=== PATIENT | female | born 1940 | race Hispanic/Latino ===

== ENCOUNTER 2016-11-17 20:23 | Emergency (ER) | payer MEDICARE, MEDICAID ==
[~2016-11-17] VITALS: Ht 154.9 cm; Wt 81.0 kg
[~2016-11-17 20:23] MED LIST: NITR100 PO; RABE20TA PO
[2016-11-17 21:03] VITALS: BP 116/71; PULSE 76; RESP 18; O2SAT 98
--- NOTE | 2016-11-17 22:21 | ED.REPORT ---
HPI-Abd Pain F 40 and Over Date of Service Nov 17, 2016 ED Provider: Reginaldo Adrian DO Pt is a 76 y.o. Bengali-speaking female wheelchair bound secondary to a CVA with a hx of HTN and HLD who presents to the ED accompanied by her daughter and she complains of right flank pain. Symptoms started this morning and seemed to wax and wane. She is more comfortable now. She does have a history of urinary tract infections and she had a urinary tract infection in September. Nursing Notes Stated Complaint: R SIDE ABD PAIN Chief Complaint: Female Abdominal Pain Nursing Notes Reviewed: Yes Allergies: Coded Allergies: No Known Allergies (Verified Allergy, Mild, 11/11/09) Scheduled Rabeprazole-Expunged Drug, Do Not Renew! (Rabeprazole-Expunged Drug, Do Not Renew!) 20 Mg Tablet.dr 20 MG PO BID Scheduled PRN Nitrofurantoin Monohyd/M-Cryst (MacroBid) 100 Mg Capsule 100 MG PO BID PRN PRN uti General Time Seen by MD: 22:21 Chief Complaint Abdominal pain Hx Obtained From: Daughter Arrived By: Wheelchair Sudden in Onset?: Yes Onset Occurred: 9 - 12 hours ago Symptom Duration: Since onset Location: : Flank right: RLQ Quality: Painful Severity: Current: Severe Past Medical History Past Medical History UTIs CVA Reports: GERD, Hyperlipidemia, Hypertension Past Surgical History none reported Smoking History Never Smoker Social History Alcohol Use: Denies alcohol use Drug Use: Denies drug use Other Social History: Good social support, Local resident Ambulatory Status Wheelchair Review of Systems Constitutional: Denies: Fever GI: Reports: Abdominal pain, Denies: Diarrhea, Vomiting Female: Reports: Flank pain, Denies: Dysuria Complete sys rev & neg: except as marked. Physical Exam Vital Signs Vital Signs (First) Date Time Temp Pulse Resp B/P Pulse Ox O2 Delivery O2 Flow Rate FiO2 11/17/16 21:03 36.8 76 18 116/71 98 Room Air Initial VS: Reviewed Head / Eyes: Atraumatic, Normocephalic Skin: Warm, Dry, No cyanosis Neurologic: Alert, Oriented, Nonfocal Psychiatric: Mood/affect normal, Behavior normal General/Constitutional: Awake, Well appearing, Well developed, Well hydrated, Well nourished, Not toxic appearing Respiratory / Chest: Atraumatic, Breath sounds NL, No respiratory distress Cardiovascular: Heart rate NL, Regular rhythm, Peripheral circulation NL Abdomen: Atraumatic, Soft, No guarding, No rebound, No distention Tenderness/Guarding/Rebound: Positive: Tender RLQ... Back: Atraumatic, Inspection NL Right CVA tenderness Interpretation & Diagnostics Lab Results Interpretation Result Diagram: 11/17/16221711/17/16 2218 Test 11/17/16 22:18 11/18/16 01:00 White Blood Count 8.4th/mm3 (3.8-10.1) Red Blood Count 4.07mil/mm3 (3.90-5.20) Hemoglobin 12.8g/dL (12.0-15.6) Hematocrit 39.2% (35.0-46.0) Mean Corpuscular Volume 96.3fL (81-100) Mean Corpuscular Hemoglobin 31.4pg (27.0-35.0) Mean Corpuscular Hemoglobin Concent 32.7% (32.0-37.0) Red Cell Distribution Width 12.5% (12.3-15.4) Platelet Count 188bil/L (150-400) Neutrophils (%) (Auto) 53.2% (40-74) Lymphocytes (%) (Auto) 32.1% (14-46) Monocytes (%) (Auto) 8.5% (4-12) Eosinophils (%) (Auto) 5.1% (0-5) Basophils (%) (Auto) 0.7% (0-3) Sodium Level 139mEq/L (134-144) Potassium Level 3.7mEq/L (3.5-5.2) Chloride Level 102mEq/L (97-108) Carbon Dioxide Level 24mmol/L (18-29) Blood Urea Nitrogen 10mg/dL (8-27) Creatinine 0.53mg/dL (0.57-1.00) Estimat Glomerular Filtration Rate 160mL/min (>59) Glucose Level 166mg/dL (60-99) Calcium Level 9.5mg/dL (8.5-10.1) Magnesium Level 2.0mg/dL (1.6-2.6) Total Bilirubin 0.3mg/dL (0.0-1.2) Aspartate Amino Transf (AST/SGOT) 18U/L (0-50) Alanine Aminotransferase (ALT/SGPT) 11U/L (0-32) Alkaline Phosphatase 149U/L (25-165) Total Protein 7.6g/dL (6.4-8.4) Albumin 3.8g/dL (3.4-5.0) Lipase 36U/L (13-60) Hold Sky Top Tube Received (Received) Urine Color Straw (YELLOW) Urine Appearance Slightly cloudy Urine pH 6.0 (5.0-8.0) Urine Specific [place] 1.005 (1.003-1.035) Urine Protein Negativemg/dL (NEG,TRACE) Urine Glucose (UA) Negativemg/dL (NEGATIVE) Urine Ketones Negativemg/dL (NEGATIVE) Urine Occult Blood Moderate (NEGATIVE) Urine Nitrite Positive (NEGATIVE) Urine Bilirubin Negative (NEGATIVE) Urine Urobilinogen Normalmg/dL (NORMAL) Urine Leukocyte Esterase Moderate (NEGATIVE) Urine RBC 3-10/hpf (0-2) Urine WBC Packed/hpf (0-5) Urine Epithelial Cells Moderate/hpf (NONE-MOD) Urine Crystals None seen (NONE SEEN) Urine Bacteria Many/hpf (NONE-FEW) Urine Hyaline Casts None/lpf (NONE) Urine Granular Casts None seen (NONE SEEN) Urine Waxy Casts None seen (NONE SEEN) Urine Red Blood Cell Casts None seen (NONE SEEN) Urine White Blood Cell Casts None seen (NONE SEEN) Urine Mucus None seen (None Seen) Urine Trichomonas None seen (NONE SEEN) Urine Yeast None (NONE SEEN) Urine Culture Reflexed Indicated Urinalysis Interpretation Positive leukocyte est, Positive nitrite CT Abd / Pelvis Interpretation CONCLUSION: No psecific acute abnormality. Parenchymal scarring in the left kidney. Correlate with history. Urinary tract infection should be excluded clinically. Diverticulosis without evidence of diverticulitis. Atherosclerotic vascular disease. Re-Eval/Medical Decision Med Decision/Clinical Course This is a very pleasant well-appearing 76-year-old female who has biochemical evidence of a urinary tract infection. Her CT scan shows scarring of the left kidney however there is no acute abnormalities and no signs of obstructive uropathy. She received 2 g of IV ceftriaxone. White blood cell count metabolic panel were normal. She was medicated looked and felt well. She did not meet sepsis criteria. She was never febrile or tachycardic. She is very comfortable at discharge. Her last urinary tract infection was positive for Escherichia coli. The Escherichia coli was sensitive to Bactrim and resistant to Cipro amongst other things. It was also sensitive to ceftriaxone. She has been medicated for the first twenty-four hours of IV Rocephin. I will place her in seven days of Bactrim. She is to call her provider tomorrow for recheck and follow up with urine culture results. She is to return she has any problems or develops a fever. Source of Hx: Old records Re-Evaluation/Progress : Time of Eval: 01:19 Re-Evaluation/Progress Note: Pt rechecked. Discussed lab and imaging results and plan for discharge, pt understands and agrees with plan. Counseled Regarding: Diagnosis, Lab results, Need for follow-up, When/why to return to ED Discharge & Departure Primary Impression: UTI (urinary tract infection) Urinary tract infection type: acute cystitis Hematuria presence: without hematuria Qualified Code: N30.00 - Acute cystitis without hematuria Disposition: Home Discharge Condition All VS Reviewed: Yes Condition: Stable Patient Instructions: Urinary Tract Infection in Women (ED) Additional Instructions: Take Bactrim twice daily for 7 days. Take Tylenol as directed for pain. Follow- up with your primary care provider next week to discuss you urine culture. Call tomorrow to schedule this appointment and tell them you were seen in the ED. Return if you develop a fever, vomiting, or any worsening symptoms. The CT scan shows scarring of her left kidney. Have her follow this up with her primary care physician as well as the referral urologist. Do not hesitate to return if she has any problems or if the pain returns or if she seems to be getting sicker in any way. Referrals: Beto Abrams MD (PCP) Carmita Macias MD Attestation Portions of this note were transcribed by Felix Brush. I, Dr. Adrian personally performed the history, physical exam and medical decision-making; I reviewed and confirmed the accuracy of the information in the transcribed note. Signed by : Alexsandra Escobar, 11/18/16 and 0146. copies to: Beto Abrams MD, Todd P DO Nov 17, 2016 22:21 FELIX BRUSH Nov 17, 2016 23:01
[2016-11-17 22:26] LABS: BASOPHILS % (AUTO) 0.7 % (0-3); EOSINOPHILS % (AUTO) 5.1 % (0-5); MONOCYTES % (AUTO) 8.5 % (4-12); Mean Corpuscular Hemoglobin 31.4 pg (27.0-35.0); Mean Corpuscular Volume 96.3 fL (81-100); NEUTROPHILS % (AUTO) 53.2 % (40-74); Platelet Count 188 bil/L (150-400)
[2016-11-17] MEDS ORDERED: fentaNYL-PF 50 mCg/mL 2 mL Inj IVPUSH ONE (23:00)
[2016-11-17] MEDS ORDERED: 0.9% Sodium Chloride 1,000 ML IV ONE (23:00)
[2016-11-17] MEDS ORDERED: Ondansetron 2 mg/mL 2 mL Inj IVPUSH ONE (23:00)
[2016-11-18 01:14] LABS: APPEARANCE,URINE SLIGHTLY CLOUDY (CLEAR,HAZY); COLOR,URINE STRAW (YELLOW)
[2016-11-18 01:15] LABS: OCCULT BLOOD,URINE MODERATE (NEGATIVE); UROBILINOGEN,URINE NORMAL (NORMAL)
[2016-11-18] MEDS ORDERED: cefTRIAXone Inj 2 GM in IV Premix 1 EACH IV ONE (01:15)
[2016-11-18] MEDS ORDERED: CeFAZolin Inj 2 GM in IV Premix 1 EACH IV ONE (01:17)
[2016-11-18] MEDS ORDERED: cefTRIAXone Inj 2,000 MG in IV Premix 1 EACH IV ONE (01:35)
[2016-11-18] MEDS ORDERED: Ketorolac 15 mg/mL Inj IVPUSH ONE (02:00)
[2016-11-18 02:51] VITALS: BP 150/87; PULSE 95; RESP 23; O2SAT 99
--- NOTE | 2016-11-18 08:21 | DRSVH ---
PROCEDURE: CT ABDOMEN AND PELVIS WITH CONTRAST ([id number]) INDICATIONS: RLQ and right flank pain TECHNIQUE: After the administration of intravenous contrast, 5 mm thick sections acquired from the diaphragm to the symphysis. 5 mm coronal and sagittal reformats were acquired. For radiation dose reduction, the following was used: automated exposure control, adjustment of mA and/or kV according to patient siz e. COMPARISON: [facility], CR, XR CHEST 2VW, 11/14/2015, 13:15. FINDINGS: Image quality: Excellent. ABDOMEN: Lung bases: Bilateral diffuse groundglass infiltrates. A 4 mm nodule is noted in the left lower lobe (series 3 image 2). No pleural effusions. Heart size is normal. Mitral annular calcification. Mild sclerotic ossification. Small hiatal hernia. Solid organs: Liver and spleen are normal in size and enhancement. Gallbladder is surgically absent . Biliary system is non dilated. Pancreas enhances normally. No adrenal nodules. Kidneys demonstr ate normal size and enhancement, without hydronephrosis. There is a cortical scar in the superior po le of the left kidney. Peritoneum and bowel: Appendix is normal. No inflammatory stranding in the right lower quadrant. No free fluid or fluid collection. No free air. Bowel loops demonstrate normal wall thickness and calib er. There are scattered colonic diverticula. No evidence for active diverticulitis. Nodes and vessels: No retroperitoneal or mesenteric adenopathy by size criteria. Aorta and inferior vena cava are normal in size. Miscellaneous: No ventral hernias. PELVIS: Genitourinary: Bladder wall may be mildly thickened concentrically. Miscellaneous: No inguinal hernias or adenopathy. Bones: No suspicious bony lesions. No vertebral body compression fractures. IMPRESSION: 1. Normal appendix. No CT findings to explain right lower quadrant and flank pain. 2. Left renal cortical scar. 3. ? Mild concentric thickening of urinary bladder. 4. Diverticulosis. No active diverticulitis. 5. Bilateral diffuse ground glass infiltrates in lung bases. This finding may be secondary to bilater al pneumonia or pneumonitis. 6. A 4 mm nodule in the left lower lobe. Recommend imaging followup (see below). Fleischner Society criteria for SOLID lung nodule followup. Nodule size (mm)Low-risk patientHigh-risk [id number] follow-up neededFollow-up at 12 mo; if no kim e, no further follow-up>[id number] CT at 12 mo; if no change, no further follow-up needed.Initial f ollow-up CT at 6-12 mo, then 18-24 mo if no change. >6-8Initial follow-up CT at 6-12 mo, then 18-24 mo if no change. Initial follow-up CT at 3-6 mo, then 9-12 mo and 24 mo if no change. >8Follow-up CT at 3, 9, 24 mo. Or PET and/or biopsy.Same as for low-risk pts. Fleischner Society criteria for SUB-SOLID lung nodule followup. Solitary pure ground-glass nodules5 mm or lessNo followup needed. >5 mm3 mo follow-up CT to confirm persistence. Then annual CT for 3 years. Part-solid nodules3 mo follow-up CT to confirm persistence . If persistent with solid component <5 mm, annual CT for at least 3 years. If solid component is 5 mm or more, biopsy or surgical resection. Consider PET-CT for lesions > 10 mm. Multiple sub-solid nodulesPure ground glass nodules [address] at 2 and 4 years. Pure ground glass nodules >5 mm without dominant lesion. [address] to confirm persistence, then annual followup CT for at least 3 years. Dominant nodule(s) with part-solid or solid component. [address] to confirm persistence. If persistent, consider biopsy or surgical resection, bryan if lesions have >5 m m solid component. Dictated by: Colleen Washington M.D. on 11/18/2016 at 8:09 Approved by: Colleen Washington M.D. on 11/18/2016 at 8:19
[2017-03-19] MEDS ORDERED: WARF2.5T PO ×2 (08:32)
[2017-03-19] MEDS ORDERED: SULF1TAB7 PO (09:09)
== END 2016-11-18 02:53 | disposition home or self-care (01) ==
LOC: SED 20:23
DX: N30.00 Acute cystitis without hematuria (principal); E78.5 Hyperlipidemia, unspecified; I10 Essential (primary) hypertension; K21.9 Gastro-esophageal reflux disease without esophagitis; B96.20 Unspecified Escherichia coli [E. coli] as the cause of diseases classified elsewhere; Z86.73 Personal history of transient ischemic attack (TIA), and cerebral infarction without residual deficits; Z87.440 Personal history of urinary (tract) infections; Z99.3 Dependence on wheelchair
CPT/HCPCS: 36415; 74177; 80053; 81000; 83690; 83735; 85025; 87077; 87086; 87088; 87186; 96361; 96365; 96375; 99285; J0696; J1885; J2405; J3010; J7030; Q9967

== ENCOUNTER 2016-11-24 17:08 | Inpatient (IN) | payer MEDICARE, MEDICAID ==
[~2016-11-24] VITALS: Ht 152.4 cm; Wt 74.0 kg
[2016-11-24 17:11] VITALS: BP 159/69; PULSE 67; RESP 20; O2SAT 97
--- NOTE | 2016-11-24 17:33 | ED.REPORT ---
HPI-Extremity Problem Lower Date of Service Nov 24, 2016 ED Provider: Feroz Martini MD 76 year old Hong Konger-speaking female with a history of CVA in 2016 with residual left side deficits presents to the ER accompanied by her granddaughter referred from urgent care due to concern for DVT in the left lower extremity. Patient complains of pain and swelling in the affected limb that is localized in the knee and foot, onset a week ago. She denies recent trauma or injury, fever, chills, dysuria, and history of similar. Last week she was seen here in the ER and started on a course of antibiotic to treat a bladder infection. Granddaughter also states that the patient has been complaining of a painful, itching spot on her back. Nursing Notes Stated Complaint: L LEG Chief Complaint: Extremity Trauma Nursing Notes Reviewed: Yes (We Cut The Glass not reconciled) Allergies: Coded Allergies: No Known Allergies (Verified Allergy, Mild, 11/11/09) Scheduled Aspirin (Aspirin) 81 Mg Tablet 81 MG PO DAILY Citalopram (Citalopram) 10 Mg Tablet 10 MG PO DAILY Cranberry Fruit (Cranberry) 500 Mg Tab.chew 500 MG PO DAILY Sulfamethoxazole/Trimeth 800-160 mg (Bactrim DS 800-160 mg) 1 Each Tablet 1 TABLET PO BID Scheduled PRN Acetaminophen (Tylenol Arthritis) 650 Mg Tablet.er 650 MG PO TID PRN PRN For Pain Baclofen (Baclofen) 10 Mg Tablet 5 MG PO TID PRN PRN For Spasm Ibuprofen (Ibuprofen) 200 Mg Capsule 200 MG PO QID PRN PRN For Pain General Time Seen by MD: 17:26 Chief Complaint Leg injury left Hx Obtained From: Patient Arrived By: Walk-in Onset Occurred: 1 week ago Symptom Duration: Since onset Location: : Foot left: Knee left: Leg left Quality: Painful Severity: Current: Mild Severity: Maximum: Moderate Associated with: Denies: Fever Exacerbated by: Range of motion, Movement Pertinent Negative: Relieved by nothing Past Medical History Past Medical History UTIs CVA (treated w/tPA 09/2016 and transfer to Stroke) Reports: GERD, Hyperlipidemia, Hypertension Past Surgical History none reported Smoking History Never Smoker Social History Alcohol Use: Denies alcohol use Drug Use: Denies drug use Other Social History: Good social support, Local resident Ambulatory Status Wheelchair Review of Systems Constitutional: Denies: Chills, Fever Musculoskeletal: Reports: Extremity pain (Left Leg/Foot), Extremity swelling ( Left Leg), Joint pain (Left Knee), Denies: Back pain, Lumbar pain, Neck pain, Thoracic pain Complete sys rev & neg: except as marked. Physical Exam Physical Exam Notes: Initial Vital Signs Vital Signs (First) Date Time Temp Pulse Resp B/P Pulse Ox O2 Delivery O2 Flow Rate FiO2 11/24/16 17:11 36.5 67 20 159/69 97 Room Air Initial VS: Reviewed, Vital signs normal General/Constitutional: Well-developed, Well-nourished Head / Eyes: Atraumatic, Normocephalic Neck: Supple, Non-tender, Full range of motion Upper Extremities: Vascular intact, Neuro intact, No swelling, No tenderness Neurologic: Alert, Oriented, Nonfocal Lower Extremity / Pelvis / MS: No deformity, Neurologic intact, Vascular intact LEFT LEG: Contracture from prior CVA. Swollen 1+ with decreased ROM secondary to contracture. Good capillary refill. Ankle / Foot: Full range of motion, No deformity, Neurologic intact Pulses are symmetric. Skin: Warm, Dry, Intact Rash / Lesion Notes: 1cm pruritic rasied lump on the right flank. No sign of cellulitis or infection. Rash / Lesion Location: Positive: Back Interpretation & Diagnostics Interpretation & Diagnostics: Urine culture from recent ED visit positive for Escherichia coli, sensitive to Bactrim which the patient is taking PROCEDURE: US VEINOUS LEG DUPLEX UNILATERAL, LEFT INDICATIONS: swelling, pain ro DVT TECHNIQUE: Real-time imaging, as well as color and pulse Doppler interrogation, were performed of the lower extremity deep veins from the inguinal ligament to the popliteal fossa. COMPARISON: None. FINDINGS: Deep venous thrombosis is present within the proximal common femoral vein extending to the level of the popliteal vein. There is also occlusive thrombus within the proximal greater saphenous vein to the level of the knee. There is diffuse lower leg edema IMPRESSION: Extensive left lower extremity deep venous thrombosis as detailed above. Dictated by: Stas Leone M.D. on 11/24/2016 at 20:54 Approved by: Stas Leone M.D. on 11/24/2016 at 20:55 Lab Results Interpretation Result Diagram: 11/24/16210711/24/162107 Test 11/24/16 21:08 White Blood Count 7.3th/mm3 (3.8-10.1) Red Blood Count 3.83mil/mm3 (3.90-5.20) Hemoglobin 12.0g/dL (12.0-15.6) Hematocrit 37.2% (35.0-46.0) Mean Corpuscular Volume 97.1fL (81-100) Mean Corpuscular Hemoglobin 31.3pg (27.0-35.0) Mean Corpuscular Hemoglobin Concent 32.3% (32.0-37.0) Red Cell Distribution Width 12.6% (12.3-15.4) Platelet Count 230bil/L (150-400) Neutrophils (%) (Auto) 39.4% (40-74) Lymphocytes (%) (Auto) 42.6% (14-46) Monocytes (%) (Auto) 8.4% (4-12) Eosinophils (%) (Auto) 8.1% (0-5) Basophils (%) (Auto) 1.1% (0-3) Prothrombin Time 9.7sec (8.1-12.5) Prothromb Time International Ratio 0.91ratio Activated Partial Thromboplast Time 23.6sec (22.8-33.0) Sodium Level 136mEq/L (134-144) Potassium Level 4.6mEq/L (3.5-5.2) Chloride Level 100mEq/L (97-108) Carbon Dioxide Level 23mmol/L (18-29) Blood Urea Nitrogen 15mg/dL (8-27) Creatinine 0.79mg/dL (0.57-1.00) Estimat Glomerular Filtration Rate 101mL/min (>59) Glucose Level 104mg/dL (60-99) Calcium Level 9.4mg/dL (8.5-10.1) Total Bilirubin 0.2mg/dL (0.0-1.2) Aspartate Amino Transf (AST/SGOT) 26U/L (0-50) Alanine Aminotransferase (ALT/SGPT) 15U/L (0-32) Alkaline Phosphatase 108U/L (25-165) Total Protein 7.4g/dL (6.4-8.4) Albumin 3.6g/dL (3.4-5.0) Lab Results Interpretation: CBC normal CMP normal UA neg ECG Interpretation ECG Interpretation: Sinus rhythm, rate 63 LVH Unchanged from 11/20/2015 Time: 21:25 Interpreted by: ED physician Re-Eval/Medical Decision Med Decision/Clinical Course This is a 76-year-old female who has a previous stroke (that was treated w/tPA) who is on ASA and who has residual severe left-sided deficit and has not ambulatory. He sent from urgent care she has developed some pain in her left foot yesterday, and then today was noted to have left leg swelling and pain and discomfort. She denies chest pain, palpitations, shortness of breath. She has no previous history of DVT or PE. On exam, she has a marked swelling of the left leg, highly concerning for possible DVT. She does have decreased range of motion contracture of the leg, but is uncomfortable. Not want any pain medicine. She is recently seen for UTI , it was culture positive for Escherichia coli, sensitive to Bactrim, she reports she has no urinary symptoms, and repeat urinalysis is negative. Ultrasound is positive for DVT. This appears to be a clinically sizable DVT, I discussed candidacy and requirements for the possibility of catheter directed thrombolytic lysis. This the DVT is a bullet off the catheter directed therapy is reasonable option according to the radiologist, the question was the patient and family's desire for risk benefit ratios. The patient has not ambulatory, there is likely less benefit in this setting, but the patient still has sensation and it *may* help with discomfort personal. However catheter directed treatment would raise the possibility of a complication from the procedure, or from the thrombolytic medicines as well. The interventional radiologist as indicated that the patient does want, she will be willing to perform catheter directed therapy tomorrow morning. I explained that standard therapy is anticoagulation with Lovenox and subsequent warfarin. Family were attentive, had appropriate questions, and had a family conference to discuss their preferences. In the end they decided on pursuing catheter directed therapy, understanding the slight increased risk of complications such as a complication from the procedure, or the anticoagulant used. Given this, the patient's being treated with heparin, and admitted to the hospitalist service. Source of Hx: Old records Re-Evaluation/Progress : Time of Eval: 20:07 Re-Evaluation/Progress Note: Discussed ultrasound results, radiology consults, and reviewed treatment options with the patient and graddaughter. Consultation #1: Referral / Consult Name: Stas Leone MD Consulted With: On-call physician (Radiology) Call Returned at: 19:10 Note: Spoke to radiology regarding patient's candidacy for interventional radiology. Consultation #2: Referral / Consult Name: Gertrudis Baxter MD Consulted With: On-call physician (Radiology) Call Returned at: 19:35 Note: Discussed patient case with Dr. Baxter, Radiology. It is unclear if the patient would benefit from interventional radiology. Consultation #3: Referral / Consult Name: Marietta Rick DO Consulted With: Hospitalist Call Returned at: 22:13 Child Psychology Teacher: Agrees with eval, Agrees with plan, Accepts admit Differential Diagnosis: Positive: Venous thromboembolism, Negative: Abrasion, Abscess, Achilles tendon rupture, Knee disloc ant, Knee disloc post, Lesser trochant fracture Counseled Regarding: Diagnosis, Lab results, Need for admission Discharge & Departure Impression: Primary Impression: DVT (deep venous thrombosis) DVT location: lower extremity Affected thrombotic vein of extremity: unspecified lower extremity proximal vein Laterality: left Chronicity: acute Qualified Code: I82.4Y2 - Acute embolism and thrombosis of unspecified deep veins of left proximal lower extremity Disposition: ADMITTED TO HOSPITAL Discharge Condition All VS Reviewed: Yes Condition: Stable Referrals: Beto Abrams MD (PCP) Alexsandra Attestation Portions of this note were transcribed by Donato Colón. I, Dr. Martini, personally performed the history, physical exam and medical decision-making; I reviewed and confirmed the accuracy of the information in the transcribed note. Signed by: Alexsandra Bazzi, 11/24/2016 and 22:14 copies to: Beto Abrams MD, Matthew F MD Nov 24, 2016 17:33 DONATO COLÓN Nov 24, 2016 17:43
[2016-11-24] MEDS ORDERED: BACL10TA PO (17:52)
[2016-11-24] MEDS ORDERED: SULF1TAB35 PO (18:02)
[2016-11-24] MEDS ORDERED: ACET-2766 PO (18:05)
[2016-11-24] MEDS ORDERED: CITA10TA9 PO (18:05)
[2016-11-24] MEDS ORDERED: ASPI-973 PO (18:07)
[2016-11-24] MEDS ORDERED: IBUP200C PO (18:08)
[2016-11-24] MEDS ORDERED: CRAN500T PO (18:08)
[2016-11-24 19:35] VITALS: BP 168/75; PULSE 66; RESP 16; O2SAT 97
[2016-11-24] MEDS ORDERED: Heparin 25K Unit/500mL 0.45 NS 25,000 UNIT in IV Premix 1 EACH IV ONE (20:55)
[2016-11-24] MEDS ORDERED: Heparin 5,000 Unit/mL Inj IVPUSH ONE (20:55)
--- NOTE | 2016-11-24 20:56 | DRSVH ---
PROCEDURE: US VEINOUS LEG DUPLEX UNILATERAL, LEFT INDICATIONS: swelling, pain ro DVT TECHNIQUE: Real-time imaging, as well as color and pulse Doppler interrogation, were performed of the lower extr emity deep veins from the inguinal ligament to the popliteal fossa. COMPARISON: None. FINDINGS: Deep venous thrombosis is present within the proximal common femoral vein extending to the level of the popliteal vein. There is also occlusive thrombus within the proximal greater saphenous v ein to the level of the knee. There is diffuse lower leg edema IMPRESSION: Extensive left lower extremity deep venous thrombosis as detailed above. Dictated by: Stas Leone M.D. on 11/24/2016 at 20:54 Approved by: Stas Leone M.D. on 11/24/2016 at 20:55
[2016-11-24 21:27] LABS: BASOPHILS % (AUTO) 1.1 % (0-3); EOSINOPHILS % (AUTO) 8.1 % (0-5); MONOCYTES % (AUTO) 8.4 % (4-12); Mean Corpuscular Hemoglobin 31.3 pg (27.0-35.0); Mean Corpuscular Volume 97.1 fL (81-100); NEUTROPHILS % (AUTO) 39.4 % (40-74); Platelet Count 230 bil/L (150-400)
[2016-11-24 22:04] VITALS: BP 164/75; PULSE 66; RESP 16; O2SAT 97
[2016-11-24 22:07] LABS: INR 0.91 ratio
[2016-11-24] MEDS ORDERED: Polyethylene Glycol (PEG) 17 Gm Powder PO PRN (22:15)
[2016-11-24] MEDS ORDERED: Alum-Mag Hydrox-Simeth 30 mL Suspension PO PRN (22:15)
[2016-11-24] MEDS ORDERED: Ondansetron 2 mg/mL 2 mL Inj IVPUSH PRN (22:15)
[2016-11-24 22:23] LABS: APPEARANCE,URINE CLEAR (CLEAR,HAZY); COLOR,URINE YELLOW (YELLOW); OCCULT BLOOD,URINE TRACE (NEGATIVE); UROBILINOGEN,URINE NORMAL (NORMAL)
[2016-11-24] MEDS ORDERED: Heparin 5,000 Unit/mL Inj IVPUSH PRN (22:35)
[2016-11-24 23:12] VITALS: BP 138/72; PULSE 63; RESP 16; O2SAT 97
[2016-11-25] VITALS (8 sets, daily range): BP systolic 135–163; BP diastolic 64–83; PULSE 64–73; RESP 16–18; O2SAT 95–98
--- NOTE | 2016-11-25 00:01 | PCM.HPMED ---
Subjective Date of Service Nov 24, 2016 Primary Provider: Admitting Physician: Marietta Rick DO Primary Care Physician: Beto Abrams MD Attending Physician: Marietta Rick DO Chief Complaint: Left foot pain History of Present Illness: Patient is a 76 year old Nigerien speaking female with a history of embolic stroke, HTN, DM2, and HLP. She presented to [facility] on 11/24/16 from Urgent Care due to left lower extremity pain and swelling. The history is obtained predominantly from her granddaughter who is her primary woodwind instrument repairer. Over the last week the patient has been increasingly complaining of pain in her left lower extremity. Over the past few days there were more objective changes such as swelling and tight skin. Today is seemed to be worse so the family took the patient to Urgent care for evaluation. They were concerned for DVT and sent the patient to the ED. Patient denies associated symptoms of chest pain, SOB, nausea, vomiting. She has not had cold or flu recently and has had no sick contacts. In October 2015, the patient had an embolic stroke and was treated at [facility] in [place]. She received tPA followed by thrombectomy and has had a prolonged course of recovery. She returned home from care home in August 2016. She has continued left hemiplegia with almost no mobility of the upper extremity and limited mobility of the lower. She is bed and wheelchair bound. Family does force her to help with transfers. Patient tries to keep herself moving as much as possible. Physical therapy continues to come into their home to work with the patient. Patient is also incontinent of urine and stool requiring her to wear a brief at all times. In the ED the patient is afebrile with a heart rate of 67, respiratory rate of 20, blood pressure 159/69, and O2 saturation of 97% on room air. Labs are unremarkable. Left lower extremity doppler ultrasound shows extensive left lower extremity DVT. Heparin drip was started in the ED. IR was called for possibility of thrombolysis and will plan to see patient tomorrow AM. Case discussed with Dr. Martini and patient will be admitted for management. Review of Systems: A comprehensive review of systems was conducted with the patient and found to be negative except as above in the history of present illness. Allergies Coded Allergies: No Known Allergies (Verified Allergy, Mild, 11/11/09) Home Medications From [facility] 11/24/16: Aspirin 81 mg tablet, take 1 tablet by oral route every day Baclofen 10 mg tablet take 0.5 tablet by oral route 3 times every day as needed for spasm Citalopram 10 mg tablet take 1 tablet by oral route every day Cranberry 475 mg capsule take 450 mg tablet PO daily Nitroglycerin 0.[address] 1 tablet by sublingual route at the 1st sign of attack; may repeat every 5 min until relief; if pain persists after 3 tablets in 15 min, prompt medical attention is recommended Peridex 0.12 % mouthwash place 15 milliliter by mucous membrane route 2 times every day swish in mouth 30 seconds then spit out at bedtime Voltaren 1 % topical gel apply (2G) by topical route 4 times every day to the affected area(s) [facility] Embolic stroke - October 2015 with prolonged rehabilitation and ongoing PT 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 DM type 2 Hyperlipidemia Hypertension Depression History of UTIs History of shingles - several years ago Surgical History Cholecystectomy Thrombectomy (October 2015) Family History No known family history of blood clots, stroke, [place] Family history of hypertension in multiple relatives Sister with DM type 2 Social History Hx Alcohol Use: Yes (occasionally) Hx Substance Use: No Hx Tobacco Use: Yes Smoking Status: Former Smoker, Never Smoker Living Arrangement: with Family Exam Vital Signs Vital Sign - Last Date Time Temp Pulse Resp B/P Pulse Ox O2 Delivery O2 Flow Rate FiO2 11/24/16 22:04 66 16 164/75 97 Room Air 11/24/16 17:11 36.5 Exam Alert and oriented x3, no acute distress Head atraumatic, normocephalic PERRLA, EOMI, sclera anicteric Mucus membranes moist, no oral thrush observed No cervical lymphadenopathy, neck supple, nontender No JVD noted Cardiac tones regular rate and rhythm with no murmur appreciated Lungs with mild bibasilar rales with adequate respiratory effort No abdominal tenderness, non-distended, normoactive bowel tones, soft Huggins absent Radial pulses normal and equivalent bilaterally, dorsalis pedis pulses normal and equivalent bilaterally No cyanosis, clubbing; edema of the left lower extremity, moderate, pitting, up to level of thigh No ulcerations/open wounds; red papule on right flank about 4 mm in size, no drainage Cranial nerves appear to be fully intact, normal speech, patient can move right upper and lower limbs grossly; left upper extremity in contracture, left lower extremity with minimal movement noted; able to help with turns and care Lab and Diagnostics Result Diagram: 11/24/16210711/24/162107 X-Rays, CTs and MRIs PROCEDURE: US VEINOUS LEG DUPLEX UNILATERAL, LEFT FINDINGS: Deep venous thrombosis is present within the proximal common femoral vein extending to the level of the popliteal vein. There is also occlusive thrombus within the proximal greater saphenous vein to the level of the knee. There is diffuse lower leg edema. IMPRESSION: Extensive left lower extremity deep venous thrombosis as detailed above. Dictated by: Stas Leone M.D. on 11/24/2016 at 20:54 Assessment & Plan Patient is a 76 year old Nigerien speaking female with a history of embolic stroke, HTN, DM2, and HLP. She presented to [facility] on 11/24/16 from Urgent Care due to left lower extremity pain and swelling. Found to have extensive left lower extremity DVT. Admitted for management to include possible thrombolysis. 1. DVT of the left leg, acute, present on admission. - Appears provoked as patient is bed and wheelchair bound due to sequelae of an embolic stroke. - Heparin drip DVT protocol ongoing. - Plan for thrombolysis procedure tomorrow with Dr. Baxter. - NPO after midnight for procedure tomorrow. - Began the discussion of penitentiary anticoagulation with the patient and family. They will think about this possibility and voice their understanding of the need for this type of medication going forward. 2. Embolic stroke, chronic, presume stable. - 2015 with ongoing PT for rehabilitation. - Ongoing left hemiplegia with limited mobility of the lower extremity and no mobility of the upper extremity. - Continue aspirin 81 mg daily. - Continue baclofen 5 mg TID. 3. Depression, chronic, presume stable. - Continue citalopram 10 mg daily. 4. Recent diagnosis of UTI, resolved. - History of recurrent UTI. - No further evidence of infection on UA. - Patient given Bactrim DS. Today was day 7 of therapy to complete the course. - Will not continue ABX at this time. - Ok to continue cranberry capsule during hospitalization. 5. Eosinophilia, acute, present on admission. - Differential diagnosis is broad. Can be related to medications, allergies/ asthma, or could be an incidental finding. - Patient is on aspirin and uses NSAIDs at home sometimes. These medication can cause eosinophilia. - Continue to monitor CBC. 6. Diabetes mellitus type 2, controlled. - A1c 6.2 September 16, 2016. - On no home medications for this. - Monitor blood glucose on BMP. 7. Hypertension, chronic, presume stable. - Appears to be on no home medications for this. - Currently normotensive. - Continue to monitor BP. - Bowel regimen available PRN. - Antiemetic available PRN. - Antacid available PRN. - Tylenol available PRN mild pain, fever. Patient admitted under inpatient status with expected length of stay greater than 2 midnights for severity of present symptoms, complexities of treatment plan and risk for adverse events. PCP Beto Abrams MD GI Prophylaxis: Not indicated VTE Prophylaxis: Other (Heparin drip DVT protocol) Resuscitation Status: CPR: Attempt Resuscitation Attending Statement The patient was seen and examined together with house staff on 11/24/2016 and I agree with the history, exam and plan as outlined in the note above. copies to: Beto Abrams MD, Jennifer E DO Nov 24, 2016 22:41 Marietta Rick DO Nov 25, 2016 02:24
[2016-11-25 05:49] LABS: BASOPHILS % (AUTO) 1.7 % (0-3); EOSINOPHILS % (AUTO) 9.6 % (0-5); MONOCYTES % (AUTO) 8.7 % (4-12); Mean Corpuscular Hemoglobin 31.1 pg (27.0-35.0); Mean Corpuscular Volume 97.3 fL (81-100); NEUTROPHILS % (AUTO) 35.4 % (40-74); Platelet Count 226 bil/L (150-400)
[2016-11-25 06:15] LABS: Magnesium 2.1 mg/dL (1.6-2.6); Phosphorus 4.3 mg/dL (2.5-4.9)
--- NOTE | 2016-11-25 07:15 | PCM.PNMED ---
Subjective Date of Service Nov 25, 2016 Subjective Patient is resting comfortably. She does have some leg pain. She has no erythema on her leg. Exam Vital Signs Vital Sign - Last Date Time Temp Pulse Resp B/P Pulse Ox O2 Delivery O2 Flow Rate FiO2 11/25/16 05:02 37.0 66 16 147/77 95 Room Air Intake and Output 11/24/16 11/24/16 11/25/16 Cumulative From/Thru 15:00 23:00 07:00 11/24/16 17:11 - 11/25/16 06:03 Intake Total 300 ml 300 ml Output Total 60 ml 60 ml Balance -60 ml 300 ml 240 ml Intake Oral 300 ml 300 ml Output Urine Total 60 ml 60 ml # Voids 2 2 # Bowel Movements 0 0 Exam Constitutional: Elderly woman in no acute distress Head: Normocephalic atraumatic Chest: Clear to auscultation Cor: Regular rate and rhythm S1-S2 Abdomen: Soft nontender bowel sounds present Extremities: Right leg no edema left leg 1+ up to hip area. No erythema noted. Lab and Diagnostics Laboratory Tests 72 Hours Test 11/24/16 21:08 11/24/16 21:25 11/25/16 04:00 11/25/16 05:35 White Blood Count 7.3th/mm3 (3.8-10.1) 8.3th/mm3 (3.8-10.1) Red Blood Count 3.83mil/mm3 (3.90-5.20) 3.67mil/mm3 (3.90-5.20) Hemoglobin 12.0g/dL (12.0-15.6) 11.4g/dL (12.0-15.6) Hematocrit 37.2% (35.0-46.0) 35.7% (35.0-46.0) Mean Corpuscular Volume 97.1fL (81-100) 97.3fL (81-100) Mean Corpuscular Hemoglobin 31.3pg (27.0-35.0) 31.1pg (27.0-35.0) Mean Corpuscular Hemoglobin Concent 32.3% (32.0-37.0) 31.9% (32.0-37.0) Red Cell Distribution Width 12.6% (12.3-15.4) 12.7% (12.3-15.4) Platelet Count 230bil/L (150-400) 226bil/L (150-400) Neutrophils (%) (Auto) 39.4% (40-74) 35.4% (40-74) Lymphocytes (%) (Auto) 42.6% (14-46) 44.4% (14-46) Monocytes (%) (Auto) 8.4% (4-12) 8.7% (4-12) Eosinophils (%) (Auto) 8.1% (0-5) 9.6% (0-5) Basophils (%) (Auto) 1.1% (0-3) 1.7% (0-3) Prothrombin Time 9.7sec (8.1-12.5) Prothromb Time International Ratio 0.91ratio Activated Partial Thromboplast Time 23.6sec (22.8-33.0) 240.0sec (22.8-33.0) 164.8sec (22.8-33.0) Sodium Level 136mEq/L (134-144) 139mEq/L (134-144) Potassium Level 4.6mEq/L (3.5-5.2) 4.7mEq/L (3.5-5.2) Chloride Level 100mEq/L (97-108) 104mEq/L (97-108) Carbon Dioxide Level 23mmol/L (18-29) 23mmol/L (18-29) Blood Urea Nitrogen 15mg/dL (8-27) 14mg/dL (8-27) Creatinine 0.79mg/dL (0.57-1.00) 0.74mg/dL (0.57-1.00) Estimat Glomerular Filtration Rate 101mL/min (>59) 109mL/min (>59) Glucose Level 104mg/dL (60-99) 114mg/dL (60-99) Calcium Level 9.4mg/dL (8.5-10.1) 9.0mg/dL (8.5-10.1) Total Bilirubin 0.2mg/dL (0.0-1.2) Aspartate Amino Transf (AST/SGOT) 26U/L (0-50) Alanine Aminotransferase (ALT/SGPT) 15U/L (0-32) Alkaline Phosphatase 108U/L (25-165) Total Protein 7.4g/dL (6.4-8.4) Albumin 3.6g/dL (3.4-5.0) Urine Color Yellow (YELLOW) Urine Appearance Clear (CLEAR,HAZY) Urine pH 6.0 (5.0-8.0) Urine Specific Bend 1.025 (1.003-1.035) Urine Protein Negativemg/dL (NEG,TRACE) Urine Glucose (UA) Negativemg/dL (NEGATIVE) Urine Ketones Negativemg/dL (NEGATIVE) Urine Occult Blood Trace (NEGATIVE) Urine Nitrite Negative (NEGATIVE) Urine Bilirubin Negative (NEGATIVE) Urine Urobilinogen Normalmg/dL (NORMAL) Urine Leukocyte Esterase Negative (NEGATIVE) Urine RBC 0-2/hpf (0-2) Urine WBC 0-5/hpf (0-5) Urine Epithelial Cells Moderate/hpf (NONE-MOD) Urine Crystals None seen (NONE SEEN) Urine Bacteria None/hpf (NONE-FEW) Urine Hyaline Casts None/lpf (NONE) Urine Granular Casts None seen (NONE SEEN) Urine Waxy Casts None seen (NONE SEEN) Urine Red Blood Cell Casts None seen (NONE SEEN) Urine White Blood Cell Casts None seen (NONE SEEN) Urine Mucus Present (None Seen) Urine Trichomonas None seen (NONE SEEN) Urine Yeast None (NONE SEEN) Urine Culture Reflexed Not indicated Phosphorus Level 4.3mg/dL (2.5-4.9) Magnesium Level 2.1mg/dL (1.6-2.6) Result Diagram: 11/25/16 0535 11/25/16 0535 X-Rays, CTs and MRIs PROCEDURE: US VEINOUS LEG DUPLEX UNILATERAL, LEFT FINDINGS: Deep venous thrombosis is present within the proximal common femoral vein extending to the level of the popliteal vein. There is also occlusive thrombus within the proximal greater saphenous vein to the level of the knee. There is diffuse lower leg edema. IMPRESSION: Extensive left lower extremity deep venous thrombosis as detailed above. Dictated by: Stas Leone M.D. on 11/24/2016 at 20:54 Assessment & Plan Patient is a 76 year old Burmese speaking female with a history of embolic stroke, HTN, DM2, and HLP. She presented to [facility] on 11/24/16 from Urgent Care due to left lower extremity pain and swelling. Found to have extensive left lower extremity DVT. Admitted for management to include possible thrombolysis. 1. DVT of the left leg, acute, present on admission. - Appears provoked as patient is bed and wheelchair bound due to sequelae of an embolic stroke. - Heparin drip DVT protocol ongoing. - Plan for thrombolysis procedure tomorrow with Dr. Baxter. - NPO after midnight for procedure tomorrow. - Began the discussion of manager terminal anticoagulation with the patient and family. They will think about this possibility and voice their understanding of the need for this type of medication going forward. -Discussed with IR and will not do thrombolysis but proceed with anticoagulation. 2. Embolic stroke, chronic, presume stable. - 2015 with ongoing PT for rehabilitation. - Ongoing left hemiplegia with limited mobility of the lower extremity and no mobility of the upper extremity. - Continue aspirin 81 mg daily. - Continue baclofen 5 mg TID. 3. Depression, chronic, presume stable. - Continue citalopram 10 mg daily. 4. Recent diagnosis of UTI, resolved. - History of recurrent UTI. - No further evidence of infection on UA. - Patient given Bactrim DS. Today was day 7 of therapy to complete the course. - Will not continue ABX at this time. - Ok to continue cranberry capsule during hospitalization. 5. Eosinophilia, acute, present on admission. - Differential diagnosis is broad. Can be related to medications, allergies/ asthma, or could be an incidental finding. - Patient is on aspirin and uses NSAIDs at home sometimes. These medication can cause eosinophilia. - Continue to monitor CBC. 6. Diabetes mellitus type 2, controlled. - A1c 6.2 September 16, 2016. - On no home medications for this. - Monitor blood glucose on BMP. 7. Hypertension, chronic, presume stable. - Appears to be on no home medications for this. - Currently normotensive. - Continue to monitor BP. - Bowel regimen available PRN. - Antiemetic available PRN. - Antacid available PRN. - Tylenol available PRN mild pain, fever. Patient admitted under inpatient status with expected length of stay greater than 2 midnights for severity of present symptoms, complexities of treatment plan and risk for adverse events. PCP Beto Abrams MD Pain Evaluation: Adequate Pain Control GI Prophylaxis: Not indicated VTE Prophylaxis: Other (Heparin drip DVT protocol) Resuscitation Status: CPR: Attempt Resuscitation Time spent 30 minutes Luz Elena Ley MD Nov 25, 2016 07:15
--- NOTE | 2016-11-25 07:49 | NUR ---
Arrival to unit Patient arrived to unit approx 2235 via ED [place]. Patient was transferred to hospital bed via slider board. Patient is is alert, and responds appropriately to questions, and commands. Family is with patient. Patient came to floor with Heparin drip started at 29.4ml/hr. When weighed in room, weight was found to be 74.5 not 81.8 which family had guessed in ED. Hospitalist notified, and ordered for drip settings to be changed accordingly. Heparin protocol followed, and verified with charge nurse. Patient is on room air, and IV in right forearm is intact, and patent. Upon PTT recheck, PTT resulted in critical lab value. Hospitalist notified, and per protocol, Heparin drip was stopped and Stat PTT was ordered. Hospitalist states that when within normal range heparin drip should be restarted but dose should be reduced by half. Have shared this with day shift nurse, and have asked them to pass along to day shift hospitalist. Will have day shift clarify. Next PTT is to be drawn at 0730. Care continues.
--- NOTE | 2016-11-25 10:31 | PCM.CONPHA ---
Subjective Date of Service: Nov 25, 2016 Warfarin Dosing Reason for Pharmacy Consult: Anticoagulation Management Assessment/Plan Assessment/Plan Indication: DVT Home Dose: New Start Anticoagulation Trends: Date INR 0.91(2/2) INR change Warf Dose 5 MG Concurrrently on therapeutic IV heparin GOAL INR: 2-3 Summary: New start for DVT. Currently subtherapeutic but on IV heparin. Will give a standard 5mg today and re-evaluate tomorrow. Pharmacy will continue to follow daily. Thank you for consulting pharmacy in the care of this patient. RWChris Mora PharmD Nov 25, 2016 10:31
--- NOTE | 2016-11-25 19:35 | NUR ---
heparin gtt/pain Heparin gtt was off at start of shift (turned off by previous shift r/t high PTT results). PTT at 0900 was 60.1, called MD and pharmacy to clarify starting rate, restarted at initial rate of 18 units/kg/hr. PTT at 1500 was 60.8, in goal range, no change, next PTT ordered for 2100 tonight. Pt also given warfarin booklet information in chinese and given first dose of po warfarin with dinner. Pt c/o intermittent left leg pain, medicated with prn tylenol x2, prn baclofen x1. Pt reports effective, family also reports pt uses diclofenac gel at home for pain, MD notified and orders for prn diclofenac gel, applied to areas on left leg that pt stated had pain (foot, knee,upper thigh). Call light in reach, family at bedside. Care continues.
[2016-11-25] MEDS: Heparin 25K Unit/500mL 0.45 NS 25,000 UNIT in IV Premix 1 EACH IV SCH (19:50)
[2016-11-26] VITALS (9 sets, daily range): BP systolic 136–170; BP diastolic 72–84; PULSE 62–95; RESP 18; O2SAT 95–99
--- NOTE | 2016-11-26 04:24 | NUR ---
PTT/SKIN RASH: PTT result done at 2100= 67.4, No change on infusion rate. Cont. at 18 units/kg/hr, next draw in AM. Pt's g'daughter reported that pt. had Shingles in the past, Pt. has a red bump on her right flank that hurt. Stated she was told at the walking clinic to watch for Shingles, she also has a scattered mild red rash from mid abdomen extending toward the right side of the abdomen. Placed Pt. on contact isolation for possible Shingles. Initially pt. stated that she did not feel anything, later on she reported that it hurt and requested something for pain. Given PO Tylenol and 5 mg of Baclofen. Helpful. Left message in Non-urgent provider communication sheet for MD, will pass on report to next RN. Pt. has bee incontinent of urine several times tonight, also using the bed arzate some times per her request. Incontinent brief on. No BM tonight.
[2016-11-26 07:02] LABS: BASOPHILS % (AUTO) 1.1 % (0-3); EOSINOPHILS % (AUTO) 8.2 % (0-5); MONOCYTES % (AUTO) 8.6 % (4-12); Mean Corpuscular Hemoglobin 31.1 pg (27.0-35.0); Mean Corpuscular Volume 97.3 fL (81-100); Platelet Count 227 bil/L (150-400)
[2016-11-26 07:28] LABS: INR 1.01 ratio
--- NOTE | 2016-11-26 08:11 | PCM.PHAPRO ---
Progress Warfarin Management by Pharmacy: Home Dose: new start Anticoagulation Trends: Date -Nov INR 0.91(2) INR change Warf Dose 5 MG -Inr today, 11/26 is 1.01 Concurrrently on therapeutic IV heparin GOAL INR: 2-3 Summary: New start for DVT. Currently subtherapeutic but on IV heparin. Day 2 of warfarin, will repeat 5mg dose this evening Pharmacy will continue to follow daily. Gretchen Young [facility] Nov 26, 2016 08:11
--- NOTE | 2016-11-26 09:14 | PCM.PNMED ---
Subjective Date of Service Nov 26, 2016 Subjective - Pt seen and examined this morning. She is resting comfortably in bed. - No acute events over night. Exam Vital Signs Vital Sign - Last Date Time Temp Pulse Resp B/P Pulse Ox O2 Delivery O2 Flow Rate FiO2 11/26/16 06:40 36.0 62 18 170/74 99 Room Air Intake and Output 11/25/16 11/25/16 11/26/16 Cumulative From/Thru 15:00 23:00 07:00 11/24/16 17:11 - 11/26/16 02:00 Intake Total 546 ml 846 ml Output Total 250 ml 310 ml Balance 296 ml 536 ml Intake Oral 318 ml 618 ml IV Total 228 ml 228 ml Output Urine Total 250 ml 310 ml # Voids 2 4 # Bowel Movements 1 1 Exam Constitutional: Elderly woman in no acute distress Head: Normocephalic atraumatic Chest: Clear to auscultation Cor: Regular rate and rhythm S1-S2 Abdomen: Soft nontender bowel sounds present Extremities: Right leg no edema left leg 1+ up to hip area. No erythema noted. Lab and Diagnostics Result Diagram: 11/26/16 0520 11/26/16 0520 X-Rays, CTs and MRIs PROCEDURE: US VEINOUS LEG DUPLEX UNILATERAL, LEFT FINDINGS: Deep venous thrombosis is present within the proximal common femoral vein extending to the level of the popliteal vein. There is also occlusive thrombus within the proximal greater saphenous vein to the level of the knee. There is diffuse lower leg edema. IMPRESSION: Extensive left lower extremity deep venous thrombosis as detailed above. Dictated by: Stas Leone M.D. on 11/24/2016 at 20:54 Assessment & Plan 76 year old Arabic speaking female with a history of embolic stroke, HTN, DM2, and HLP. She presented to [facility] on 11/24/16 from Urgent Care due to left lower extremity pain and swelling. Found to have extensive left lower extremity DVT. Admitted for management to include possible thrombolysis. 1. DVT of the left leg, acute, present on admission. - Appears provoked as patient is bed and wheelchair bound due to sequelae of an embolic stroke. - Heparin drip DVT protocol ongoing. Also on Coumadin. - Dose adjustment as per pharmacist. - No need for thrombolysis as per IR 2. Embolic stroke, chronic, presume stable. - 2015 with ongoing PT for rehabilitation. - Ongoing left hemiplegia with limited mobility of the lower extremity and no mobility of the upper extremity. - Continue aspirin 81 mg daily. - Continue baclofen 5 mg TID. 3. Depression, chronic, presume stable. - Continue citalopram 10 mg daily. 4. Recent diagnosis of UTI, resolved. - History of recurrent UTI. - No further evidence of infection on UA. - Patient given Bactrim DS. finished 7 days of therapy - Ok to continue cranberry capsule during hospitalization. 5. Eosinophilia, acute, present on admission. - Differential diagnosis is broad. Can be related to medications, allergies/ asthma, or could be an incidental finding. - Patient is on aspirin and uses NSAIDs at home sometimes. These medication can cause eosinophilia. - Continue to monitor CBC. 6. Diabetes mellitus type 2, controlled. - A1c 6.2 September 16, 2016. - On no home medications for this. - Monitor blood glucose on BMP. 7. Hypertension, chronic, presume stable. - Appears to be on no home medications for this. - Currently normotensive. - Continue to monitor BP. - Bowel regimen available PRN. - Antiemetic available PRN. - Antacid available PRN. - Tylenol available PRN mild pain, fever. GI Prophylaxis: Not indicated VTE Prophylaxis: Other (Heparin drip DVT protocol) VTE Mechanical Devices: Intermittant Pneumatic CD Resuscitation Status: CPR: Attempt Resuscitation Saul Jaramillo MD Nov 26, 2016 09:14
--- NOTE | 2016-11-26 14:27 | NUR ---
aPTT/skin rash Notified doctor aPTT results 76.3, no change per protocol. Heparin infusing at 26.8 ml/hour rate and 18 units/kg/hour. stable vital signs. patient is alert and oriented X3. Able to make needs known. notified doctor r/ chris this AM and received orders anti viral scheduled. patient had medium BM this shift and sample Guiac and sent to lab for testing. Verbal orders received from doctor r/ t discontinue blood sugars. call light with in reach for safety. denies pain or discomfort. family at bed side. continue to monitor aPTT per protocol, vial signs, pain, and safety.
[2016-11-26] MEDS: Heparin 25K Unit/500mL 0.45 NS 25,000 UNIT in IV Premix 1 EACH IV SCH (16:03)
--- NOTE | 2016-11-26 16:23 | NUR ---
Elevated Systolic David bradley doctor r/t elevated Systolic and awaiting response for any new orders. patient is asymptomatic. c/o pain to right abdomen 04/01. PRN given as ordered with effective results.
[2016-11-27] VITALS (8 sets, daily range): BP systolic 151–182; BP diastolic 76–82; PULSE 69–96; RESP 16; O2SAT 97–98
[2016-11-27 05:28] LABS: BASOPHILS % (AUTO) 1.6 % (0-3); EOSINOPHILS % (AUTO) 8.1 % (0-5); MONOCYTES % (AUTO) 8.3 % (4-12); Mean Corpuscular Hemoglobin 31.7 pg (27.0-35.0); Mean Corpuscular Volume 97.1 fL (81-100); NEUTROPHILS % (AUTO) 37.4 % (40-74); Platelet Count 222 bil/L (150-400)
[2016-11-27 05:38] LABS: INR 1.16 ratio
--- NOTE | 2016-11-27 06:46 | NUR ---
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 At 0400 BP was 180/80 Given 50 mg of PO Hydralazine one time order. Pt's abdominal rash still no changes. Red bumps a few of them filled with clear fluid in the center. Pt. states sometimes they itch and sometimes they hurt, but most of the time she denies pain. Pt. started on Acyclovir tonight. Pt. already has a Hx of shingles in [place], she was told by her Doctor that she could get it again. Pt. on contact isolation for shingles. Family educated regarding shingles. Cont. to be incontinent of urine, no stools tonight. Pt. is A & O, and making needs known. I gave her a bed bath and washed her hair last night per pt's request. Pt's grand daughter at her bed side. Pt. is pleasant and cooperative with care. Addendum: 11/27/16 at 0701 by WILBUR MCLAUGHLIN RN (NELLY) PTT: PTT this am was 91.6, per protocol decreased rate by 1 unit/kg/hr. Pump set at 17 units/kg/hr, 25.3 ml/hr, rate adjusted at 0545 this am, next PTT due in 6 hr due at [address] in computer.
--- NOTE | 2016-11-27 08:50 | PCM.PNMED ---
Subjective Date of Service Nov 27, 2016 Subjective - Pt seen and examined this morning. - No acute events over night. - on Heparin gtt along with Warfarin for DVT Exam Vital Signs Vital Sign - Last Date Time Temp Pulse Resp B/P Pulse Ox O2 Delivery O2 Flow Rate FiO2 11/27/16 06:30 36.9 69 16 182/80 97 Room Air Intake and Output 11/26/16 11/26/16 11/27/16 Cumulative From/Thru 15:00 23:00 07:00 11/24/16 17:11 - 11/27/16 06:44 Intake Total 200 ml 1240 ml 350 ml 2636 ml Output Total 150 ml 1856 ml 2316 ml Balance 50 ml 1240 ml -1506 ml 320 ml Intake Oral 200 ml 690 ml 350 ml 1858 ml IV Total 550 ml 778 ml Output Urine Total 150 ml 1856 ml 2316 ml # Voids 4 4 4 16 # Bowel Movements 0 1 Exam Constitutional: Elderly woman in no acute distress Head: Normocephalic atraumatic Chest: Clear to auscultation Cor: Regular rate and rhythm S1-S2 Abdomen: Soft nontender bowel sounds present Extremities: Right leg no edema left leg 1+ up to hip area. No erythema noted. IVs and Medications Medications Reviewed: Medications were reviewed in detail Lab and Diagnostics Result Diagram: 11/27/16 0504 11/27/16 0504 X-Rays, CTs and MRIs PROCEDURE: US VEINOUS LEG DUPLEX UNILATERAL, LEFT FINDINGS: Deep venous thrombosis is present within the proximal common femoral vein extending to the level of the popliteal vein. There is also occlusive thrombus within the proximal greater saphenous vein to the level of the knee. There is diffuse lower leg edema. IMPRESSION: Extensive left lower extremity deep venous thrombosis as detailed above. Dictated by: Stas Leone M.D. on 11/24/2016 at 20:54 Assessment & Plan 76 year old Guinean speaking female with a history of embolic stroke, HTN, DM2, and HLP. She presented to [facility] on 11/24/16 from Urgent Care due to left lower extremity pain and swelling. Found to have extensive left lower extremity DVT. Admitted for management to include possible thrombolysis. 1. DVT of the left leg, acute, present on admission. - Appears provoked as patient is bed and wheelchair bound due to sequelae of an embolic stroke. - Heparin drip DVT protocol ongoing. Also on Coumadin. - Dose adjustment as per pharmacist. - No need for thrombolysis as per IR 2. Embolic stroke, chronic, presume stable. - 2015 with ongoing PT for rehabilitation. - Ongoing left hemiplegia with limited mobility of the lower extremity and no mobility of the upper extremity. - Continue aspirin 81 mg daily. - Continue baclofen 5 mg TID. 3. Depression, chronic, presume stable. - Continue citalopram 10 mg daily. 4. Recent diagnosis of UTI, resolved. - History of recurrent UTI. - No further evidence of infection on UA. - Patient given Bactrim DS. finished 7 days of therapy - Ok to continue cranberry capsule during hospitalization. 5. Eosinophilia, acute, present on admission. - Differential diagnosis is broad. Can be related to medications, allergies/ asthma, or could be an incidental finding. - Patient is on aspirin and uses NSAIDs at home sometimes. These medication can cause eosinophilia. - Continue to monitor CBC. 6. Diabetes mellitus type 2, controlled. - A1c 6.2 September 16, 2016. - Diet controlled. Not on any medications. - Monitor blood glucose on BMP. 7. Hypertension, chronic, presume stable. - Appears to be on no home medications for this. - well controlled - Continue to monitor BP. - Bowel regimen available PRN. - Antiemetic available PRN. - Antacid available PRN. - Tylenol available PRN mild pain, fever. Pain Evaluation: Adequate Pain Control GI Prophylaxis: Not indicated VTE Prophylaxis: Theraputic Anticoag with Warfarin, Other (Heparin drip DVT protocol) VTE Mechanical Devices: Intermittant Pneumatic CD Resuscitation Status: CPR: Attempt Resuscitation Saul Jaramillo MD Nov 27, 2016 08:50
--- NOTE | 2016-11-27 15:20 | PCM.PHAPRO ---
Progress WARFARIN MANAGEMENT PER PHARMACY [facility] DFF Date 3-Nov 4-Nov 27-Nov INR 0.91(2/2) 1.01 1.16 INR change #VALUE! 0.15 Warf Dose 5 MG 5MG 5 Will dose 5 mg for one more day. Consider increasing tomorrow if trend doesn't trend higher. Jose Cruz, PharmD Jose Cruz Nov 27, 2016 15:20
--- NOTE | 2016-11-27 16:50 | NUR ---
rash pt has scant amount raised pink macular lesions, one of them has a tiny clear blister(approx .5mm), pts biggest complaint is right side pain
--- NOTE | 2016-11-27 19:38 | NUR ---
PTT: PTT Draw done at 1830 this evening, new result 89.1, per protocol, decrease rate by 1 unit/kg/hr, next draw in 6 hr. New rate now set at 15 units/kg/hr=22.4 ml/hr. Next PTT draw due at 0130 tonight 11/28/16 Lab order placed in computer per BRANDY Shaw.
[2016-11-28] VITALS (9 sets, daily range): BP systolic 97–151; BP diastolic 56–79; PULSE 71–99; RESP 16–20; O2SAT 95–98
--- NOTE | 2016-11-28 03:27 | NUR ---
PTT: PTT draw done at 0130 result was 84.7 No change. Cont. at same rate 15 units/kg/hr=22.4 ml/hr. Next PTT draw scheduled for this am at 0800 on 11/28/16. Lab order placed in computer.
--- NOTE | 2016-11-28 03:30 | NUR ---
BP: Pt's BP has been bet. 140-180s over 70s-80s. Pt. has hx of HTN, her g'daughter states pt. used to take Lisinopril 20 mg po once daily but she hasn't been taking it for a while she does not know why. Message sent to provider via [employer]. Waiting for reply. Will leave a written communication note.
[2016-11-28 05:28] LABS: BASOPHILS % (AUTO) 1.6 % (0-3); EOSINOPHILS % (AUTO) 7.2 % (0-5); MONOCYTES % (AUTO) 9.1 % (4-12); Mean Corpuscular Hemoglobin 31.5 pg (27.0-35.0); Mean Corpuscular Volume 97.5 fL (81-100); NEUTROPHILS % (AUTO) 41.1 % (40-74); Platelet Count 232 bil/L (150-400)
[2016-11-28 05:47] LABS: INR 1.63 ratio
--- NOTE | 2016-11-28 12:46 | PCM.PNMED ---
Subjective Date of Service Nov 28, 2016 Subjective [id number], home lisinopril resumed today denied GI bleeding, tolerating heprin gtt/coumadin inr1.63 today Complaint of right flank pain, sharp, started 3 days ago, currently on the Valtrex for that Denies difficulty breathing, hemoptysis, left lower extremity pain has significantly improving Exam Vital Signs Vital Sign - Last Date Time Temp Pulse Resp B/P Pulse Ox O2 Delivery O2 Flow Rate FiO2 11/28/16 11:02 99 11/28/16 09:38 36.7 16 151/79 98 Room Air Intake and Output 11/27/16 11/27/16 11/28/16 Cumulative From/Thru 15:00 23:00 07:00 11/24/16 17:11 - 11/28/16 06:29 Intake Total 1100 ml 3736 ml Output Total 200 ml 2516 ml Balance 900 ml 1220 ml Intake Oral 1100 ml 2958 ml IV Total 778 ml Output Urine Total 200 ml 2516 ml # Voids 2 18 # Bowel Movements 1 2 Exam NAD, comfortably laying down on the bed no JVD, MMM, no LAD RRR, nl s1, s2 no mrg CTAB, no w,c S,ND,NT,normoactive BS+ LLE: warm, no edema, pulses 2/2, symmetric, mildly tender IVs and Medications Medications Reviewed: Medications were reviewed in detail Lab and Diagnostics Result Diagram: 11/28/1644411/28/16444 X-Rays, CTs and MRIs PROCEDURE: US VEINOUS LEG DUPLEX UNILATERAL, LEFT FINDINGS: Deep venous thrombosis is present within the proximal common femoral vein extending to the level of the popliteal vein. There is also occlusive thrombus within the proximal greater saphenous vein to the level of the knee. There is diffuse lower leg edema. IMPRESSION: Extensive left lower extremity deep venous thrombosis as detailed above. Dictated by: Stas Leone M.D. on 11/24/2016 at 20:54 Assessment & Plan 76 year old Turkish speaking female with a history of embolic stroke, HTN, DM2, and HLP. She presented to [facility] on 11/24/16 from Urgent Care due to left lower extremity pain and swelling. Found to have extensive left lower extremity DVT. Admitted for management to include possible thrombolysis. 1. DVT of the left leg, acute, present on admission. - Appears provoked as patient is bed and wheelchair bound due to sequelae of an embolic stroke. - Heparin drip DVT protocol ongoing. Also on Coumadin. - Dose adjustment as per pharmacist. - No need for thrombolysis as per IR 2. Embolic stroke, chronic, presume stable. - 2015 with ongoing PT for rehabilitation. - Ongoing left hemiplegia with limited mobility of the lower extremity and no mobility of the upper extremity. - Continue aspirin 81 mg daily. - Continue baclofen 5 mg TID. 3. Depression, chronic, presume stable. - Continue citalopram 10 mg daily. 4. Recent diagnosis of UTI, resolved. - History of recurrent UTI. - No further evidence of infection on UA. - Patient given Bactrim DS. finished 7 days of therapy - Ok to continue cranberry capsule during hospitalization. 5. Eosinophilia, acute, present on admission. - Differential diagnosis is broad. Can be related to medications, allergies/ asthma, or could be an incidental finding. - Patient is on aspirin and uses NSAIDs at home sometimes. These medication can cause eosinophilia. - Continue to monitor CBC. 6. Diabetes mellitus type 2, controlled. - A1c 6.2 September 16, 2016. - Diet controlled. Not on any medications. - Monitor blood glucose on BMP. 7. Hypertension, chronic, presume stable. -resume lisinopril 20mg / - Continue to monitor BP. - Bowel regimen available PRN. - Antiemetic available PRN. - Antacid available PRN. - Tylenol available PRN mild pain, fever. dispo: Still on bridging of anticoagulant coagulation, d/c home in 1-2 days once INR in target diet:general dvt ppx:systemic AC Full Code GI Prophylaxis: Not indicated VTE Prophylaxis: Theraputic Anticoag with Warfarin, Other (Heparin drip DVT protocol) VTE Mechanical Devices: Intermittant Pneumatic CD Resuscitation Status: CPR: Attempt Resuscitation Time spent 35min George Jain MD Nov 28, 2016 12:46
--- NOTE | 2016-11-28 13:41 | PCM.PHAPRO ---
Progress 3-Feb 4-Feb 5-Feb 6-Feb 0.91(2/) 1.01 1.16 1.63 #VALUE! 0.15 0.47 5 MG 5MG 5 5 Pt is currently on heparin drip as well. Will give one time dose tonight of warfarin 5mg PO in hopes that she will reach therapeutic range soon. Pharmacy will continue to monitor INR/CBC/signs and symptoms of bleeding Shannon Leroy PharmD Nov 28, 2016 13:40
[2016-11-29] VITALS (7 sets, daily range): BP systolic 103–125; BP diastolic 64–71; PULSE 68–85; RESP 17–18; O2SAT 96–99
--- NOTE | 2016-11-29 02:42 | NUR ---
Pain in left calf/knee Per granddaughter, patient states that she still has pain behind left knee and sometimes into the groin area. Patient does not move left lower or upper extremities. Patient appears to have grimace look per FELT score, however, refuse pain medication at this time. Patient was informed, via granddaughter, to let me know if she needed anything for pain . VSS. Call light within reach. Care continues.
[2016-11-29 05:35] LABS: BASOPHILS % (AUTO) 1.1 % (0-3); EOSINOPHILS % (AUTO) 5.8 % (0-5); MONOCYTES % (AUTO) 10.1 % (4-12); Mean Corpuscular Hemoglobin 31.4 pg (27.0-35.0); NEUTROPHILS % (AUTO) 41.4 % (40-74); Platelet Count 259 bil/L (150-400)
[2016-11-29 06:22] LABS: Phosphorus 5.1 mg/dL (2.5-4.9)
[2016-11-29 06:44] LABS: INR 2.7 ratio
--- NOTE | 2016-11-29 11:48 | PCM.PNMED ---
Subjective Date of Service Nov 29, 2016 Subjective INR in 2.7 pt remained stable, denied GI bleeding, hemoptysis, still c/o LE pain, similar to yesterday Not able to out of bed yet, PT was ordered Exam Vital Signs Vital Sign - Last Date Time Temp Pulse Resp B/P Pulse Ox O2 Delivery O2 Flow Rate FiO2 11/29/16 10:34 68 11/29/16 10:25 36.6 18 103/64 99 Room Air Intake and Output 11/28/16 11/28/16 11/29/16 Cumulative From/Thru 14:59 22:59 06:59 11/24/16 17:11 - 11/29/16 06:43 Intake Total 550 ml 1834 ml 6120 ml Output Total 1223 ml 3739 ml Balance 550 ml 611 ml 2381 ml Intake Oral 550 ml 450 ml 3958 ml IV Total 1384 ml 2162 ml Output Urine Total 1223 ml 3739 ml # Voids 3 4 25 # Bowel Movements 0 2 Exam NAD, comfortably laying down on the bed no JVD, MMM, no LAD RRR, nl s1, s2 no mrg CTAB, no w,c S,ND,NT,normoactive BS+ LLE: warm, no edema, pulses 2/2, symmetric, mildly tender IVs and Medications Medications Reviewed: Medications were reviewed in detail Lab and Diagnostics Result Diagram: 11/29/1645311/29/16453 X-Rays, CTs and MRIs PROCEDURE: US VEINOUS LEG DUPLEX UNILATERAL, LEFT FINDINGS: Deep venous thrombosis is present within the proximal common femoral vein extending to the level of the popliteal vein. There is also occlusive thrombus within the proximal greater saphenous vein to the level of the knee. There is diffuse lower leg edema. IMPRESSION: Extensive left lower extremity deep venous thrombosis as detailed above. Dictated by: Stas Leone M.D. on 11/24/2016 at 20:54 Assessment & Plan 76 year old Singaporean speaking female with a history of embolic stroke, HTN, DM2, and HLP. She presented to [facility] on 11/24/16 from Urgent Care due to left lower extremity pain and swelling. Found to have extensive left lower extremity DVT. Admitted for management to include possible thrombolysis. 1. DVT of the left leg, acute, present on admission. - Appears provoked as patient is bed and wheelchair bound due to sequelae of an embolic stroke. - Heparin drip DVT protocol finished today, continue Coumadin - Dose adjustment as per pharmacist. - No need for thrombolysis as per IR 2. Embolic stroke, chronic, presume stable. - 2015 with ongoing PT for rehabilitation. - Ongoing left hemiplegia with limited mobility of the lower extremity and no mobility of the upper extremity. - Continue aspirin 81 mg daily. - Continue baclofen 5 mg TID. 3. Depression, chronic, presume stable. - Continue citalopram 10 mg daily. 4. Recent diagnosis of UTI, resolved. - History of recurrent UTI. - No further evidence of infection on UA. - Patient given Bactrim DS. finished 7 days of therapy - Ok to continue cranberry capsule during hospitalization. 5. Eosinophilia, acute, present on admission. - Differential diagnosis is broad. Can be related to medications, allergies/ asthma, or could be an incidental finding. - Patient is on aspirin and uses NSAIDs at home sometimes. These medication can cause eosinophilia. - Continue to monitor CBC. 6. Diabetes mellitus type 2, controlled. - A1c 6.2 September 16, 2016. - Diet controlled. Not on any medications. - Monitor blood glucose on BMP. 7. Hypertension, chronic, presume stable. -resume lisinopril 20mg 2/6 - Continue to monitor BP. - Bowel regimen available PRN. - Antiemetic available PRN. - Antacid available PRN. - Tylenol available PRN mild pain, fever. dispo: finished bridging today, home with tomorrow given immobility,extent of dvt, appreciate PT input. diet:general dvt ppx:systemic AC Full Code GI Prophylaxis: Not indicated VTE Prophylaxis: Theraputic Anticoag with Warfarin, Other (Heparin drip DVT protocol) VTE Mechanical Devices: Intermittant Pneumatic CD Resuscitation Status: CPR: Attempt Resuscitation Time spent 35 minutes George Jain MD Nov 29, 2016 11:48
--- NOTE | 2016-11-29 13:48 | PCM.PHAPRO ---
Progress WARFARIN DOSING PER PHARMACY 3-b 4-b 5-b 6-b 7-b 0.91(11/24) 1.01 1.16 1.63 2.70 #VALUE! 0.15 0.47 1.07 5 MG 5MG 5 5 Heparin drip has been stopped today (11/29) P: Will hold tonight's dose of warfarin due to rapidly increasing INR and in anticipation that INR will increase again tomorrow. Pharmacy will continue to monitor INR/CBC/signs and symptoms of bleeding Shannon Leroy PharmD Nov 29, 2016 13:48
--- NOTE | 2016-11-29 19:12 | NUR ---
Mentation- Alert when awake. Tearful at times. Complaining of left leg pain. Tylenol effective for discomfort. Patient assisting with turning and she calls appropriately at times for bedpan. Heparin gtt dc'd per order. No signs of bleeding noted.
--- NOTE | 2016-11-29 21:21 | NUR ---
POST OP: Pt. returned from [facility] at 2024 after ERCP. Pt. is sedated but able to answer simple questions with "yes or no" with head movement. Was able to transfer self from stretcher to her bed. Upper lip is swollen, has glove with ice in place. VS taken immediately upon arrival to [facility], VSS. Sat. 100% RA. Placed on SCDs. Placed on SENIOR ADVOCATE upon arrival. C/o nausea, given 10 mg of IV Reglan. AQ=883. Pt's family at her side. On going care. Addendum: 11/29/16 at 9624 by WILBUR MCLAUGHLIN RN (NELLY) ADDENDUM: Above note done on wrong pt. this was mean to be on Rm 1007 JOHN MEDRANO.
--- NOTE | 2016-11-29 22:11 | NUR ---
ACTIVITY: Pt. resting in bed. Repositioned during assessment. Given HS dose of Acyclovir and muscle relaxant 5 mg. Applied Voltaren to her left leg and Triancinolone to skin rash. Her brief is dry at this time. On going care. Pt's g'daughter at her side.
[2016-11-30 00:18] VITALS: BP 113/73; PULSE 76; RESP 18; O2SAT 99
[2016-11-30 04:30] VITALS: PULSE 76
[2016-11-30 05:14] VITALS: BP 121/74; PULSE 69; RESP 16; O2SAT 96
--- NOTE | 2016-11-30 05:45 | NUR ---
ACTIVITY: Pt. has been tearful off and on. Report abdominal pain pointing at the red rash on her abdomen, reports pain at 10/10 on that rash. States "it hurts inside, I think I have stomach cancer, my had stomach cancer and he ". Explained that stomach cancer is not contagious just because her had it does not mean she will have the same. Medicated with all prn pain meds. On going care.
[2016-11-30 06:27] LABS: BASOPHILS % (AUTO) 1.2 % (0-3); EOSINOPHILS % (AUTO) 7.1 % (0-5); Mean Corpuscular Hemoglobin 31.4 pg (27.0-35.0); Mean Corpuscular Volume 98.3 fL (81-100); NEUTROPHILS % (AUTO) 47.1 % (40-74); Platelet Count 230 bil/L (150-400)
[2016-11-30 06:40] LABS: INR 2.76 ratio
[2016-11-30 06:45] LABS: Phosphorus 4.2 mg/dL (2.5-4.9)
[2016-11-30] MEDS ORDERED: WARF5TAB PO (07:32)
[2016-11-30] MEDS ORDERED: LISI-567 PO (07:32)
[2016-11-30] MEDS ORDERED: VALA500T2 PO (07:32)
[2016-11-30 08:22] VITALS: BP 125/77; PULSE 71; RESP 18; O2SAT 96
[2016-11-30 09:21] VITALS: PULSE 79
--- NOTE | 2016-11-30 09:51 | PCM.DIMED ---
Discharge Instructions Date of Service Nov 30, 2016 Dates of Hospitalization Nov 24, 2016 at 21:21 Discharge Diagnosis Discharge Diagnosis Acute dvt on Left lower extremity Medication Instructions Please continue to take Coumadin as directed Please finish taking Valtrex for Shingles for 3more days Diet No restrictions Activity No restrictions Patient Instructions You were hospitalized with extensive blood clots in your left leg, treated with strong blood thinners. Please note that you should avoid vigorous movement given extensive clots burden in your leg, possible dislodgement to your lungs. Follow-up plan Please follow-up with your doctor in 2 weeks You have to continue periodic blood checking Coumadin level to make sure it's in good range Follow-up Provider: Beto Abrams MD Follow-up with PCP in: 2 weeks George Jain MD Nov 30, 2016 09:51
--- NOTE | 2016-11-30 11:42 | PCM.PHAPRO ---
Progress 3-Feb 4-Feb 5-Feb 6-Feb 7-Feb 8-Feb 0.91(2/2) 1.01 1.16 1.63 2.70 2.76 #VALUE! 0.15 0.47 1.07 0.06 5 MG 5MG 5 5 HOLD Will give one dose of warfarin 5mg PO tonight in anticipation of INR decreasing tomorrow Pharmacy will continue to monitor INR/CBC/signs and symptoms of bleeding Shannon Leroy PharmD Nov 30, 2016 11:42
[2016-11-30 11:54] VITALS: BP 135/68; PULSE 73; RESP 16; O2SAT 96
--- NOTE | 2016-11-30 13:46 | PCM.DC.MED ---
Discharge Summary Date of Service Nov 30, 2016 Dates of Hospitalization Date of Hospital Admission Nov 24, 2016 at 21:21 Date of Discharge: Nov 30, 2016 Providers: Admitting Physician: Marietta Rick DO Primary Care Physician: Beto Abrams MD Attending Physician: Marietta Rick DO Diagnosis at Time of Discharge Diagnosis at Time of Discharge 1Acute dvt on Left lower extremity 2 hx of Embolic stroke 3. Depression, 4. Recent diagnosis of UTI, 5. Eosinophilia 6. Diabetes mellitus type 2 7. Hypertension Procedures XRay, CTs & MRIs PROCEDURE: US VEINOUS LEG DUPLEX UNILATERAL, LEFT FINDINGS: Deep venous thrombosis is present within the proximal common femoral vein extending to the level of the popliteal vein. There is also occlusive thrombus within the proximal greater saphenous vein to the level of the knee. There is diffuse lower leg edema. IMPRESSION: Extensive left lower extremity deep venous thrombosis as detailed above. Dictated by: Stas Leone M.D. on 11/24/2016 at 20:54 Brief History H&P performed by on 11/24 Patient is a 76 year old Algerian speaking female with a history of embolic stroke, HTN, DM2, and HLP. She presented to [facility] on 11/24/16 from Urgent Care due to left lower extremity pain and swelling. The history is obtained predominantly from her granddaughter who is her primary automotive designer. Over the last week the patient has been increasingly complaining of pain in her left lower extremity. Over the past few days there were more objective changes such as swelling and tight skin. Today is seemed to be worse so the family took the patient to Urgent care for evaluation. They were concerned for DVT and sent the patient to the ED. Patient denies associated symptoms of chest pain, SOB, nausea, vomiting. She has not had cold or flu recently and has had no sick contacts. In October 2015, the patient had an embolic stroke and was treated at [facility] in [place]. She received tPA followed by thrombectomy and has had a prolonged course of recovery. She [facility] home from [facility] in August 2016. She has continued left hemiplegia with almost no mobility of the upper extremity and limited mobility of the lower. She is bed and wheelchair bound. Family does force her to help with transfers. Patient tries to keep herself moving as much as possible. Physical therapy continues to come into their home to work with the patient. Patient is also incontinent of urine and stool requiring her to wear a brief at all times. In the ED the patient is afebrile with a heart rate of 67, respiratory rate of 20, blood pressure 159/69, and O2 saturation of 97% on room air. Labs are unremarkable. Left lower extremity doppler ultrasound shows extensive left lower extremity DVT. Heparin drip was started in the ED. IR was called for possibility of thrombolysis and will plan to see patient tomorrow AM. Case discussed with Dr. Martini and patient will be admitted for management. Hospital Course 76 year old Algerian speaking female with a history of embolic stroke, HTN, DM2, and HLP. She presented to [facility] on 11/24/16 from Urgent Care due to left lower extremity pain and swelling. Found to have extensive left lower extremity DVT. Admitted for management to include possible thrombolysis. 1. DVT of the left leg, acute, present on admission, Appears provoked as patient is bed and wheelchair bound due to sequelae of an embolic stroke, patient was started on- Heparin drip and Coumadin, bridged successfully, last INR 2.7x upon d/c. Thrombolysis was not recommended as per IR. Patient did not have any episodes of bleeding, tolerated offering very well, pt maintained good good oxygenation on room air, didn't show signs of PE. Plan is to continue Coumadin likely indefinite with periodic INR checks. 2. Embolic stroke, chronic, presume stable, 2015 with ongoing PT for rehabilitation, pt has Ongoing left hemiplegia with limited mobility of the lower extremity and no mobility of the upper extremity, continued aspirin 81 mg daily, baclofen 5 mg TID. 3. Depression, chronic, presume stable, continued citalopram 10 mg daily. 4. Recent diagnosis of UTI, resolved.Patient given Bactrim DS. finished 7 days of therapy, remained stable 5. Eosinophilia acute, present on admission, unclear etiology, persistent Absolute count less than 1000s, no intervention pursued. 6. Diabetes mellitus type 2, controlled, A1c 6.2 September 16, 2016.Diet controlled. 7. Hypertension, chronic, presume stable.resumed lisinopril 20mg 11/28 Exam Vital Signs (Last) Date Time Temp Pulse Resp B/P Pulse Ox O2 Delivery O2 Flow Rate FiO2 2/8/17 11:54 96 Exam NAD, comfortably laying down on the bed no JVD, MMM, no LAD RRR, nl s1, s2 no mrg CTAB, no w,c S,ND,NT,normoactive BS+ LLE: warm, no edema, pulses 2/2, symmetric, mildly tender Test 11/24/16 21:25 11/28/16 04:45 11/29/16 04:54 11/30/16 05:40 Urine Color Yellow (YELLOW) Urine Appearance Clear (CLEAR,HAZY) Urine pH 6.0 (5.0-8.0) Urine Specific [place]coe 1.025 (1.003-1.035) Urine Protein Negativemg/dL (NEG,TRACE) Urine Glucose (UA) Negativemg/dL (NEGATIVE) Urine Ketones Negativemg/dL (NEGATIVE) Urine Occult Blood Trace (NEGATIVE) Urine Nitrite Negative (NEGATIVE) Urine Bilirubin Negative (NEGATIVE) Urine Urobilinogen Normalmg/dL (NORMAL) Urine Leukocyte Esterase Negative (NEGATIVE) Urine RBC 0-2/hpf (0-2) Urine WBC 0-5/hpf (0-5) Urine Epithelial Cells Moderate/hpf (NONE-MOD) Urine Crystals None seen (NONE SEEN) Urine Bacteria None/hpf (NONE-FEW) Urine Hyaline Casts None/lpf (NONE) Urine Granular Casts None seen (NONE SEEN) Urine Waxy Casts None seen (NONE SEEN) Urine Red Blood Cell Casts None seen (NONE SEEN) Urine White Blood Cell Casts None seen (NONE SEEN) Urine Mucus Present (None Seen) Urine Trichomonas None seen (NONE SEEN) Urine Yeast None (NONE SEEN) Urine Culture Reflexed Not indicated Prealbumin 17mg/dL (20-40) Activated Partial Thromboplast Time 95.5sec (22.8-33.0) White Blood Count 6.9th/mm3 (3.8-10.1) Red Blood Count 3.63mil/mm3 (3.90-5.20) Hemoglobin 11.4g/dL (12.0-15.6) Hematocrit 35.7% (35.0-46.0) Mean Corpuscular Volume 98.3fL (81-100) Mean Corpuscular Hemoglobin 31.4pg (27.0-35.0) Mean Corpuscular Hemoglobin Concent 31.9% (32.0-37.0) Red Cell Distribution Width 13.1% (12.3-15.4) Platelet Count 230bil/L (150-400) Neutrophils (%) (Auto) 47.1% (40-74) Lymphocytes (%) (Auto) 33.9% (14-46) Monocytes (%) (Auto) 10.0% (4-12) Eosinophils (%) (Auto) 7.1% (0-5) Basophils (%) (Auto) 1.2% (0-3) Prothrombin Time 30.1sec (8.1-12.5) Prothromb Time International Ratio 2.76ratio Sodium Level 137mEq/L (134-144) Potassium Level 4.2mEq/L (3.5-5.2) Chloride Level 102mEq/L (97-108) Carbon Dioxide Level 22mmol/L (18-29) Blood Urea Nitrogen 19mg/dL (8-27) Creatinine 0.56mg/dL (0.57-1.00) Estimat Glomerular Filtration Rate 150mL/min (>59) Glucose Level 115mg/dL (60-99) Calcium Level 9.2mg/dL (8.5-10.1) Phosphorus Level 4.2mg/dL (2.5-4.9) Magnesium Level 2.0mg/dL (1.6-2.6) Total Bilirubin 0.2mg/dL (0.0-1.2) Aspartate Amino Transf (AST/SGOT) 22U/L (0-50) Alanine Aminotransferase (ALT/SGPT) 16U/L (0-32) Alkaline Phosphatase 107U/L (25-165) Total Protein 6.6g/dL (6.4-8.4) Albumin 3.7g/dL (3.4-5.0) Discharge Medications Discharge Medications Aspirin (Aspirin) 81 Mg Tablet 81 MG PO DAILY (Reported) Citalopram (Citalopram) 10 Mg Tablet 10 MG PO DAILY (Reported) Cranberry Fruit (Cranberry) 500 Mg Tab.chew 500 MG PO DAILY (Reported) Lisinopril (Lisinopril) 20 Mg Tablet 20 MG PO DAILY Prescribed by: GEORGE MONTES DE OCA MD Valacyclovir HCl (Valtrex) 500 Mg Tablet 500 MG PO TID Prescribed by: GEORGE MONTES DE OCA MD Warfarin Sodium (Coumadin) 5 Mg Tablet 5 MG PO DAILY Prescribed by: GEORGE MONTES DE OCA MD As needed Acetaminophen (Tylenol Arthritis) 650 Mg Tablet.er 650 MG PO TID PRN PRN For Pain (Reported) Baclofen (Baclofen) 10 Mg Tablet 5 MG PO TID PRN PRN For Spasm (Reported) Additional med instructions Please continue to take Coumadin as directed Please finish taking Valtrex for Shingles for 3more days Followup Plan Disposition: Home with home health Follow-up plan Please follow-up with your doctor in 2 weeks You have to continue periodic blood checking Coumadin level to make sure it's in good range Discharge Diet: No restrictions Discharge Activity: No restrictions Patient Instructions You were hospitalized with extensive blood clots in your left leg, treated with strong blood thinners. Please note that you should avoid vigorous movement given extensive clots burden in your leg, possible dislodgement to your lungs. Follow-up Provider: Beto Abrams MD Follow-up with PCP in: 2 weeks Time spent 65min George Montes De Oca MD Nov 30, 2016 13:24
--- NOTE | 2016-11-30 14:09 | NUR ---
Discharge Pt d/cd home at 1405. Reviewed d/c instructions w/ home furnishings sales representative, granddaughter, and patient. Answered all questions. IV d/c'd intact. Pt in w/c via [facility] lift. Taken to her granddaughter's POV via w/c. Pt tearful, granddaughter says this is normal, pt states she is ready to go home, just crying. Pt left w/ all belongings and hard copies of RXs.
--- NOTE | 2016-11-30 14:49 | NUR ---
Social Work Discharge: Order for discharge acknowledged. Plan is home with granddaughter and HHC services via [facility]. [facility] rep Byron confirmed that patient current with [facility] services for HHC Rn, PT, SW, and ST services. Rep made aware of discharge for today. No other needs identified at this time. PLAN: Home with granddaughter and resumption of HHC services via [facility]. SW to follow. Reagan GILL
[2017-03-19] MEDS ORDERED: WARF2.5T PO ×2 (08:32)
[2017-03-19] MEDS ORDERED: SULF1TAB7 PO (09:09)
== END 2016-11-30 14:10 | disposition home health service (06) | DRG 300 ==
LOC: SED 17:08 → OSC 21:21
PROVIDERS: ADMIT Internal Medicine; ATTEND Internal Medicine
DX: I82.4Y2 Acute embolism and thrombosis of unspecified deep veins of left proximal lower extremity (principal); I69.354 Hemiplegia and hemiparesis following cerebral infarction affecting left non-dominant side; K21.9 Gastro-esophageal reflux disease without esophagitis; E78.5 Hyperlipidemia, unspecified; I10 Essential (primary) hypertension; F32.9 Major depressive disorder, single episode, unspecified; D72.1 Eosinophilia; E11.9 Type 2 diabetes mellitus without complications; Z79.82 Long term (current) use of aspirin; Z99.3 Dependence on wheelchair; Z87.440 Personal history of urinary (tract) infections

== ENCOUNTER 2016-12-11 15:59 | Emergency (ER) | payer MEDICARE, MEDICAID ==
[~2016-12-11] VITALS: Ht 152.4 cm; Wt 75.0 kg
[~2016-12-11 15:59] MED LIST changes: +ACET-2766 PO; +ASPI-973 PO; +BACL10TA PO; +CITA10TA9 PO; +CRAN500T PO; +LISI-567 PO; -NITR100 PO; -RABE20TA PO; +VALA500T2 PO; +WARF5TAB PO
[2016-12-11 16:13] VITALS: BP 137/63; PULSE 74; RESP 20; O2SAT 99
--- NOTE | 2016-12-11 18:05 | ED.REPORT ---
HPI-Extremity Problem Lower Date of Service Dec 11, 2016 ED Provider: Reginaldo Adrian DO A 76 year old female with a history of hypertension, UTI, and DVT presents to the ED complaining of left leg pain and swelling. The pt was admitted on 2016 for a left lower extremity DVT and started on Coumadin. The pt's family was later instructed to hold the Coumadin due to the pt's INR of 7 four days ago and 5 two days ago. She has now been without Coumadin for four days. Her left leg pain has returned and is worsening, and the leg is swollen. The pain is most severe on her left inner thigh, but the pt has not been taking any pain medications. Nursing Notes Stated Complaint: LEFT LEG PAIN Chief Complaint: Extremity Trauma Nursing Notes Reviewed: Yes Allergies: Coded Allergies: No Known Allergies (Verified Allergy, Mild, 11/11/09) Scheduled Aspirin (Aspirin) 81 Mg Tablet 81 MG PO DAILY Citalopram (Citalopram) 10 Mg Tablet 10 MG PO DAILY Cranberry Fruit (Cranberry) 500 Mg Tab.chew 500 MG PO DAILY Lisinopril (Lisinopril) 20 Mg Tablet 20 MG PO DAILY Valacyclovir HCl (Valtrex) 500 Mg Tablet 500 MG PO TID Warfarin Sodium (Coumadin) 5 Mg Tablet 5 MG PO DAILY Scheduled PRN Acetaminophen (Tylenol Arthritis) 650 Mg Tablet.er 650 MG PO TID PRN PRN For Pain Baclofen (Baclofen) 10 Mg Tablet 5 MG PO TID PRN PRN For Spasm General Time Seen by MD: 18:05 Chief Complaint Other (Left leg pain) Hx Obtained From: Patient, Jira Developer (family) Arrived By: Walk-in Onset Occurred: 4 days ago Symptom Duration: Since onset Recent Healthcare: Recent doctor visit, Recent hospitalization Similar Sx Previous: Yes Past Medical History Past Medical History UTIs CVA (treated w/tPA 09/2016 and transfer to Stroke) Reports: GERD, Hyperlipidemia, Hypertension Past Surgical History none reported Smoking History Former Smoker, Never Smoker Social History Alcohol Use: Denies alcohol use Drug Use: Denies drug use Other Social History: Good social support, Local resident Ambulatory Status Wheelchair Review of Systems Constitutional: Denies: Fever Musculoskeletal: Reports: Extremity pain, Extremity swelling, Denies: Back pain Skin: Denies Rash Complete sys rev & neg: except as marked. Respiratory: Denies: Non-productive cough Cardiovascular: Denies: Chest pain GI: Denies: Abdominal pain Physical Exam Initial Vital Signs Vital Signs (First) Date Time Temp Pulse Resp B/P Pulse Ox O2 Delivery O2 Flow Rate FiO2 12/11/16 16:13 36.3 74 20 137/63 99 Room Air Initial VS: Reviewed Lower Extremity / Pelvis / MS: Atraumatic, Full range of motion strong pulses no erythema of left lower extremity no sign of acute arterial insufficiency no bruit tenderness to palpation of left medial thigh Ankle / Foot: Atraumatic, Full range of motion General/Constitutional: Awake, Alert Respiratory / Chest: Atraumatic, Breath sounds NL, Breath sounds = bilat, No respiratory distress Cardiovascular: Heart rate NL, Regular rhythm, Heart sounds NL Skin: Atraumatic, Color NL, No rash, Warm, Dry Neurologic: Oriented X3, Speech NL, No motor deficits, No sensory deficits Head / Eyes: Atraumatic, Normocephalic, PERRL, EOMI ENT: Atraumatic, Airway patent, Mucous membranes moist Neck: Atraumatic, Supple, Full range of motion Abdomen: Atraumatic, Soft, Non-tender Back: Atraumatic, Full range of motion Upper Extremity / MS: Atraumatic, Full range of motion Psychiatric: Affect NL, Mood NL Interpretation & Diagnostics Lab Results Interpretation Result Diagram: 12/11/16180012/11/161800 Test 12/11/16 18:01 White Blood Count 6.2th/mm3 (3.8-10.1) Red Blood Count 3.95mil/mm3 (3.90-5.20) Hemoglobin 12.5g/dL (12.0-15.6) Hematocrit 39.2% (35.0-46.0) Mean Corpuscular Volume 99.2fL (81-100) Mean Corpuscular Hemoglobin 31.6pg (27.0-35.0) Mean Corpuscular Hemoglobin Concent 31.9% (32.0-37.0) Red Cell Distribution Width 13.1% (12.3-15.4) Platelet Count 235bil/L (150-400) Neutrophils (%) (Auto) 44.1% (40-74) Lymphocytes (%) (Auto) 41.1% (14-46) Monocytes (%) (Auto) 7.9% (4-12) Eosinophils (%) (Auto) 5.5% (0-5) Basophils (%) (Auto) 1.1% (0-3) Prothrombin Time 28.9sec (8.1-12.5) Prothromb Time International Ratio 2.65ratio Sodium Level 138mEq/L (134-144) Potassium Level 4.1mEq/L (3.5-5.2) Chloride Level 100mEq/L (97-108) Carbon Dioxide Level 25mmol/L (18-29) Blood Urea Nitrogen 16mg/dL (8-27) Creatinine 0.56mg/dL (0.57-1.00) Estimat Glomerular Filtration Rate 150mL/min (>59) Glucose Level 138mg/dL (60-99) Calcium Level 9.2mg/dL (8.5-10.1) Magnesium Level 2.1mg/dL (1.6-2.6) Total Bilirubin 0.2mg/dL (0.0-1.2) Aspartate Amino Transf (AST/SGOT) 20U/L (0-50) Alanine Aminotransferase (ALT/SGPT) 13U/L (0-32) Alkaline Phosphatase 154U/L (25-165) Total Protein 7.9g/dL (6.4-8.4) Albumin 4.0g/dL (3.4-5.0) Procalcitonin 0.03ng/mL (0.00-0.08) Hold Sky Top Tube Received (Received) Pulse Oximetry Interpretation Pulse Oximetry Interpretation: 99% on room air Pulse Oximetry: Pulse Ox normal Re-Eval/Medical Decision Med Decision/Clinical Course Ms. Ragsdale has bounding pedal pulses. Acute arterial insufficiency highly unlikely. She has a known DVT and her INR is perfect. Her white blood cell count is normal. Her Pro calcitonin is normal. I see no signs of a bacterial infection whatsoever. As such I certainly would not put her on antibiotics. Her pain was adequately treated with Delanson. I think that should be safe with her warfarin. He has follow-up with the Coumadin clinic tomorrow. I think that is appropriate as well. She was discharged in stable condition. Routine opiate warnings were given. Of note she is actually complaining of pain of the medial muscle mass of her proximal thigh/abductor muscle mass. I did not feel a hematoma in there. She has strong pulses. No history of trauma however she does struggle a bit with being moved from the chair to her wheelchair so perhaps she strained her groin. Either way symptomatic treatment is indicated. Source of Hx: Old records Re-Evaluation/Progress : Time of Eval: 19:51 Patient Status: Condition improved Re-Evaluation/Progress Note: Pt rechecked, who is resting comfortably. She is informed of her diagnosis and the plan for discharge. The pt understands and agrees with the plan. All questions are addressed at this time. Counseled Regarding: Diagnosis, Lab results, Need for follow-up, When/why to return to ED Discharge & Departure Impression: Primary Impression: Left leg pain Additional Impression: History of DVT (deep vein thrombosis) Disposition: Home Discharge Condition All VS Reviewed: Yes Condition: Stable Patient Instructions: Deep Venous Thrombosis (ED) Additional Instructions: Follow the [facility]'s recommendations with regard to the Warfarin. Take 1 Delanson every 6 hours as needed for severe pain. This is a sedating medication that may increase the risk of falling. Do not drink, drive, or consume acetaminophen while taking the Delanson. Increase the natural fiber in your diet to avoid constipation. This medication is also habit forming, so use it sparingly and only for pain. Follow up with your primary care physician next week for further evaluation. Return to the emergency department if you develop any new or worsening symptoms. Siga las recomendaciones de la clnica [facility] con respecto a la warfarina. Delanson tere 1 cada 6 horas victoriano necesario para el dolor sonu. Se trata de chaparro medicacin sedante que puede aumentar el riesgo de caer. No flora, coche, o consumir acetaminofn teniendo la Delanson. Aumentar la fibra natural en castillo dieta para evitar el estreimiento. Siobhan medicamento tambin es hbito, as que usarlo con moderacin y slo para el dolor. Seguimiento con castillo mdico de atenci n primaria de la prxima semana para la evaluacin adicional. Volver al servicio de urgencias si presenta cualquier sntoma nuevo o que empeora. Referrals: Beto Abrams MD (PCP) Alexsandra Attestation Portions of this note were transcribed by Юлия Jacinto. I, Dr. Adrian personally performed the history, physical exam and medical decision-making; I reviewed and confirmed the accuracy of the information in the transcribed note. Signed by: Alexsandra Villarreal, 12/11/2016 and 20:03. copies to: Beto Abrams MD, Todd P DO Dec 11, 2016 18:05 ЮЛИЯ JACINTO Dec 11, 2016 18:28
[2016-12-11 18:06] LABS: BASOPHILS % (AUTO) 1.1 % (0-3); EOSINOPHILS % (AUTO) 5.5 % (0-5); MONOCYTES % (AUTO) 7.9 % (4-12); Mean Corpuscular Hemoglobin 31.6 pg (27.0-35.0); Mean Corpuscular Volume 99.2 fL (81-100); NEUTROPHILS % (AUTO) 44.1 % (40-74); Platelet Count 235 bil/L (150-400)
[2016-12-11 18:20] LABS: INR 2.65 ratio
[2016-12-11 18:28] LABS: Magnesium 2.1 mg/dL (1.6-2.6)
[2016-12-11] MEDS ORDERED: HYDROcodone-APAP 5-325 mg Tablet PO ONE (18:30)
[2016-12-11 20:28] VITALS: BP 114/65; PULSE 72; RESP 17; O2SAT 95
[2016-12-11 20:29] VITALS: BP 114/65; PULSE 72; RESP 17; O2SAT 95
[2017-03-19] MEDS ORDERED: WARF2.5T PO ×2 (08:32)
[2017-03-19] MEDS ORDERED: SULF1TAB7 PO (09:09)
== END 2016-12-11 20:29 | disposition home or self-care (01) ==
LOC: SED 15:59
DX: M79.605 Pain in left leg (principal); M79.89 Other specified soft tissue disorders; M79.652 Pain in left thigh; I10 Essential (primary) hypertension; K21.9 Gastro-esophageal reflux disease without esophagitis; E78.5 Hyperlipidemia, unspecified; Z86.73 Personal history of transient ischemic attack (TIA), and cerebral infarction without residual deficits; Z86.718 Personal history of other venous thrombosis and embolism; Z79.01 Long term (current) use of anticoagulants; Z79.82 Long term (current) use of aspirin; Z87.891 Personal history of nicotine dependence

== ENCOUNTER 2017-01-12 10:54 | Emergency (ER) | payer MEDICARE, MEDICAID ==
[~2017-01-12] VITALS: Ht 149.9 cm; Wt 75.0 kg
[2017-01-12 11:06] VITALS: BP 118/78; PULSE 75; RESP 16; O2SAT 99
--- NOTE | 2017-01-12 14:56 | ED.REPORT ---
HPI-General Illness Date of Service Jan 12, 2017 ED Provider: Nikolai Barroso MD Pt is a 76 y/o female w/ a hx of UTIs, presenting to the ED with her granddaughter c/o dysuria for 2 days. She c/o associated urinary frequency. Pt denies abdominal pain, fever, vomiting, confusion, CP, SOB. This presentation is very similar to previous UTIs. Nursing Notes Stated Complaint: HURTS TO URINATE Chief Complaint: Female Abdominal Pain Nursing Notes Reviewed: Yes Allergies: Coded Allergies: No Known Allergies (Verified Allergy, Mild, 11/11/09) Scheduled Aspirin (Aspirin) 81 Mg Tablet 81 MG PO DAILY Ciprofloxacin (Ciprofloxacin) 500 Mg Tablet 500 MG PO BID Citalopram (Citalopram) 10 Mg Tablet 10 MG PO DAILY Cranberry Fruit (Cranberry) 500 Mg Tab.chew 500 MG PO DAILY Lisinopril (Lisinopril) 20 Mg Tablet 20 MG PO DAILY Valacyclovir HCl (Valtrex) 500 Mg Tablet 500 MG PO TID Warfarin Sodium (Coumadin) 5 Mg Tablet 5 MG PO DAILY Scheduled PRN Acetaminophen (Tylenol Arthritis) 650 Mg Tablet.er 650 MG PO TID PRN PRN For Pain Baclofen (Baclofen) 10 Mg Tablet 5 MG PO TID PRN PRN For Spasm General Time Seen by MD: 14:05 Chief Complaint Other (Dysuria) Hx Obtained From: Patient, Other family... 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 Reports: GERD, Hyperlipidemia, Hypertension Past Surgical History none reported Smoking History Former Smoker, Never Smoker Social History Alcohol Use: Denies alcohol use Drug Use: Denies drug use Other Social History: Good social support, Local resident Ambulatory Status Wheelchair Review of Systems Full Review of Systems Constitutional: Denies: Chills, Fever Respiratory: Denies: Non-productive cough, Shortness of breath Cardiovascular: Denies: Chest pain, Dyspnea on exertion GI: Denies: Abdominal pain, Diarrhea, Nausea, Vomiting Female: Reports: Dysuria, Urinary frequency Neurologic: Denies: Change LOC, Confusion Complete sys rev & neg: except as marked. Physical Exam Vital Signs Vital Signs Date Time Temp Pulse Resp B/P Pulse Ox O2 Delivery O2 Flow Rate FiO2 01/12/17 16:29 73 16 141/64 100 Room Air 01/12/17 16:28 73 16 141/64 100 Room Air 01/12/17 11:06 36.6 75 16 118/78 99 Room Air Initial VS: Reviewed, Vital signs normal Head / Eyes: Atraumatic, Normocephalic, PERRL ENT: Mucous membranes moist, Conjunctiva normal, No scleral icterus Neck: Supple, Full range of motion Respiratory: Breath sounds normal, Clear to auscultation, No respiratory distress Cardiovascular: Regular rate & rhythm, Heart sounds normal, Intact distal pulses Extremities: Vascular intact, No swelling, No tenderness Skin: Warm, Dry, No cyanosis Psychiatric: Mood/affect normal, Behavior normal, Normal thought content General/Constitutional: Awake, Alert, No acute distress, Cooperative, Not toxic appearing Abdomen: Atraumatic, Soft, No guarding, No rebound, No distention, No palpable mass Tenderness/Guarding/Rebound: Positive: Tender suprapubic (mild) No rash over groin. Wearing adult depends Neurologic: Oriented X3, Speech NL Left-sided paralysis with flexion posturing of the LUE which is her baseline Interpretation & Diagnostics Lab Results Interpretation Test 01/12/17 14:15 01/12/17 14:50 Hold Urine Received (Received) Urine Color [place] (YELLOW) Urine Appearance Cloudy (CLEAR,HAZY) Urine pH 7.0 (5.0-8.0) Urine Specific [place] 1.025 (1.003-1.035) Urine Protein mg/dL (NEG,TRACE) Urine Glucose (UA) mg/dL (NEGATIVE) Urine Ketones mg/dL (NEGATIVE) Urine Occult Blood (NEGATIVE) Urine Nitrite (NEGATIVE) Urine Bilirubin (NEGATIVE) Urine Urobilinogen mg/dL (NORMAL) Urine Leukocyte Esterase (NEGATIVE) Urine RBC 0-2/hpf (0-2) Urine WBC >50/hpf (0-5) Urine Epithelial Cells Few/hpf (NONE-MOD) Urine Crystals None seen (NONE SEEN) Urine Bacteria Many/hpf (NONE-FEW) Urine Hyaline Casts None/lpf (NONE) Urine Granular Casts None seen (NONE SEEN) Urine Waxy Casts None seen (NONE SEEN) Urine Red Blood Cell Casts None seen (NONE SEEN) Urine White Blood Cell Casts None seen (NONE SEEN) Urine Mucus None seen (None Seen) Urine Trichomonas None seen (NONE SEEN) Urine Yeast None (NONE SEEN) Urinalysis Comment Color interference Urine Culture Reflexed Indicated Re-Eval/Medical Decision Med Decision/Clinical Course Pt is a 76 y/o female w/ a hx of UTIs, presenting to the ED with her granddaughter c/o dysuria for 2 days. She c/o associated urinary frequency. Pt denies abdominal pain, fever, vomiting, confusion, CP, SOB. This presentation is very similar to previous UTIs. Here in the emergency department the patient is afebrile, hemodynamically stable and in no apparent distress. She is nontoxic in appearance with no percussive flank tenderness though she does have mild suprapubic tenderness on exam. UA notable for: >50 WBC, many bacteria, convincing for UTI but limited by phenazopyridine which she has been taking. Urine was sent for culture and I started the patient on a 7 day course of ciprofloxacin. No findings at this time suggestive of acute surgical intra- abdominal process or systemic infection. She is well appearing, tolerating PO and in no apparent distress. He did feel that further laboratory studies or imaging studies are not immediately indicated based upon the clinical presentation. Follow-up and return precautions were reviewed in detail with the patient as well as her daughter and she was discharged in good condition. Time of Eval: 15:49 Re-Evaluation/Progress Note: Pt rechecked. Informed pt of plan for treatment. Pt understands and agrees with plan for treatment. F/U and RTER warnings given. All questions addressed. Counseled Regarding: Diagnosis, Lab results, Need for follow-up, When/why to return to ED Discharge & Departure Primary Impression: UTI (urinary tract infection) Urinary tract infection type: site unspecified Hematuria presence: without hematuria Qualified Code: N39.0 - Urinary tract infection, site not specified Additional Impression: Dysuria Disposition: Home Discharge Condition All VS Reviewed: Yes Condition: Stable Patient Instructions: Urinary Tract Infection in Women (ED) Additional Instructions: Smita does have a UTI. Her vital signs are normal and it is appropriate to treat this as an outpatient. Give her Cipro twice per day for 7 days. Return to the emergency department for vomiting, high fever, confusion, lethargy , or for other concerning symptoms. Have her seen by her primary care doctor early next week for re-evaluation. Referrals: Beto Abrams MD (PCP) Jackieibalejandra Attestation Portions of this note were transcribed by Jose Garnica. I, Dr. Barroso personally performed the history, physical exam and medical decision-making; I reviewed and confirmed the accuracy of the information in the transcribed note. Signed by Alexsandra Calderon, 01/12/17 - [id number] copies to: Beto Abrams MD, Beck O MD Jan 12, 2017 14:56 JOSE GARNICA Jan 12, 2017 15:04
[2017-01-12 15:18] LABS: APPEARANCE,URINE CLOUDY (CLEAR,HAZY); COLOR,URINE ORANGE (YELLOW)
[2017-01-12] MEDS ORDERED: CIPR-198 PO (15:48)
[2017-01-12 16:28] VITALS: BP 141/64; PULSE 73; RESP 16; O2SAT 100
[2017-01-12 16:29] VITALS: BP 141/64; PULSE 73; RESP 16; O2SAT 100
[2017-03-19] MEDS ORDERED: WARF2.5T PO ×2 (08:32)
[2017-03-19] MEDS ORDERED: SULF1TAB7 PO (09:09)
== END 2017-01-12 16:29 | disposition home or self-care (01) ==
LOC: SED 10:54
DX: N39.0 Urinary tract infection, site not specified (principal); R30.0 Dysuria; E78.5 Hyperlipidemia, unspecified; K21.9 Gastro-esophageal reflux disease without esophagitis; I10 Essential (primary) hypertension; Z79.82 Long term (current) use of aspirin; Z79.01 Long term (current) use of anticoagulants; Z86.73 Personal history of transient ischemic attack (TIA), and cerebral infarction without residual deficits; Z87.891 Personal history of nicotine dependence

== ENCOUNTER 2017-03-15 16:07 | Emergency (ER) | payer MEDICARE, MEDICAID ==
[~2017-03-15] VITALS: Ht 152.4 cm; Wt 75.0 kg
[~2017-03-15 16:07] MED LIST changes: +CIPR-198 PO
[2017-03-15 16:20] VITALS: BP 133/70; PULSE 81; RESP 18; O2SAT 98
--- NOTE | 2017-03-15 17:48 | ED.REPORT ---
HPI-Abd Pain F 40 and Over Date of Service March 15, 2017 ED Provider: Nikolai Barroso MD A 76 year old female with history of HTN, UTI and DVT presents to [facility] ED accompanied by her granddaughter complaining of dysuria for 4 days. Patient denies abdominal pain, pain, fever, vomiting, confusion, chest pain, shortness of breath. She is wheelchair bound after stroke in 2016, so caretakers and her granddaughter are taking care of her. Nursing Notes Stated Complaint: BURNING SENSATION WHEN URINATING Chief Complaint: Burning during urination Nursing Notes Reviewed: Yes Allergies: Coded Allergies: No Known Allergies (Verified Allergy, Mild, 11/11/09) Scheduled Aspirin (Aspirin) 81 Mg Tablet 81 MG PO DAILY Ciprofloxacin (Ciprofloxacin) 500 Mg Tablet 500 MG PO BID Ciprofloxacin (Ciprofloxacin) 500 Mg Tablet 500 MG PO BID Citalopram (Citalopram) 10 Mg Tablet 10 MG PO DAILY Cranberry Fruit (Cranberry) 500 Mg Tab.chew 500 MG PO DAILY Lisinopril (Lisinopril) 20 Mg Tablet 20 MG PO DAILY Valacyclovir HCl (Valtrex) 500 Mg Tablet 500 MG PO TID Warfarin Sodium (Coumadin) 5 Mg Tablet 5 MG PO DAILY Scheduled PRN Acetaminophen (Tylenol Arthritis) 650 Mg Tablet.er 650 MG PO TID PRN PRN For Pain Baclofen (Baclofen) 10 Mg Tablet 5 MG PO TID PRN PRN For Spasm General Time Seen by MD: 16:27 Chief Complaint Dysuria Hx Obtained From: Patient, Other family... 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 DVT Reports: GERD, Hyperlipidemia, Hypertension Past Surgical History none reported Smoking History Former Smoker, Never Smoker Social History Alcohol Use: Denies alcohol use Drug Use: Denies drug use Other Social History: Good social support, Local resident Ambulatory Status Wheelchair Review of Systems Constitutional: Denies: Chills, Fatigue, Fever Respiratory: Denies: Dyspnea on exertion, Shortness of breath, Wheezing Cardiovascular: Denies: Chest pain, Edema GI: Denies: Abdominal pain, Constipation, Diarrhea, Nausea, Vomiting Female: Reports: Dysuria, Incontinence, Urinary frequency, Denies: Flank pain, Hematuria Musculoskeletal: Denies: Extremity swelling Physical Exam Vital Signs Vital Signs (First) Date Time Temp Pulse Resp B/P Pulse Ox O2 Delivery O2 Flow Rate FiO2 03/15/17 16:20 37.2 81 18 133/70 98 Room Air Initial VS: Reviewed, Vital signs normal General/Constitutional: Awake, Alert, No acute distress, Well appearing, Well developed, Well hydrated, Well nourished, Cooperative Respiratory / Chest: Breath sounds = bilat, No respiratory distress, No wheezing Cardiovascular: Heart rate NL, Regular rhythm, Cap refill not delayed Abdomen: Atraumatic, Soft, No guarding, No rebound, BS normoactive Tenderness/Guarding/Rebound: Positive: Tender suprapubic Head / Eyes: Atraumatic, Normocephalic, PERRL ENT: Mucous membranes moist Skin: No rash, Warm, Dry, Intact Lower Extremity / Pelvis / MS: No swelling, No erythema, Vascular intact Left Thigh: Positive: Tenderness present... (Mild, left inner thigh) Interpretation & Diagnostics Lab Results Interpretation Result Diagram: 03/15/17191003/15/171910 Test 03/15/17 17:20 03/15/17 19:11 Urine Color Straw (YELLOW) Urine Appearance Turbid (CLEAR,HAZY) Urine pH 7.5 (5.0-8.0) Urine Specific [place] 1.015 (1.003-1.035) Urine Protein 300mg/dL (NEG,TRACE) Urine Glucose (UA) Negativemg/dL (NEGATIVE) Urine Ketones Negativemg/dL (NEGATIVE) Urine Occult Blood Small (NEGATIVE) Urine Nitrite Positive (NEGATIVE) Urine Bilirubin Negative (NEGATIVE) Urine Urobilinogen 1.0mg/dL (NORMAL) Urine Leukocyte Esterase Moderate (NEGATIVE) Urine RBC 0-2/hpf (0-2) Urine WBC 6-10/hpf (0-5) Urine Epithelial Cells Few/hpf (NONE-MOD) Urine Crystals None seen (NONE SEEN) Urine Bacteria Few/hpf (NONE-FEW) Urine Hyaline Casts None/lpf (NONE) Urine Granular Casts None seen (NONE SEEN) Urine Waxy Casts None seen (NONE SEEN) Urine Red Blood Cell Casts None seen (NONE SEEN) Urine White Blood Cell Casts None seen (NONE SEEN) Urine Mucus Present (None Seen) Urine Trichomonas None seen (NONE SEEN) Urine Yeast None (NONE SEEN) Urinalysis Comment None Urine Culture Reflexed Indicated Hold Urine Received (Received) White Blood Count 7.3th/mm3 (3.8-10.1) Red Blood Count 3.85mil/mm3 (3.90-5.20) Hemoglobin 12.2g/dL (12.0-15.6) Hematocrit 37.3% (35.0-46.0) Mean Corpuscular Volume 96.9fL (81-100) Mean Corpuscular Hemoglobin 31.7pg (27.0-35.0) Mean Corpuscular Hemoglobin Concent 32.7% (32.0-37.0) Red Cell Distribution Width 12.3% (12.3-15.4) Platelet Count 193bil/L (150-400) Neutrophils (%) (Auto) 53.8% (40-74) Lymphocytes (%) (Auto) 32.3% (14-46) Monocytes (%) (Auto) 8.9% (4-12) Eosinophils (%) (Auto) 4.2% (0-5) Basophils (%) (Auto) 0.7% (0-3) Prothrombin Time 25.0sec (8.1-12.5) Prothromb Time International Ratio 2.30ratio Sodium Level 139mEq/L (134-144) Potassium Level 4.2mEq/L (3.5-5.2) Chloride Level 101mEq/L (97-108) Carbon Dioxide Level 25mmol/L (18-29) Blood Urea Nitrogen 16mg/dL (8-27) Creatinine 0.59mg/dL (0.57-1.00) Estimat Glomerular Filtration Rate 141mL/min (>59) Glucose Level 136mg/dL (60-99) Lactic Acid Level 1.2mmol/L (0.4-2.0) Calcium Level 9.5mg/dL (8.5-10.1) Total Bilirubin 0.2mg/dL (0.0-1.2) Aspartate Amino Transf (AST/SGOT) 16U/L (0-50) Alanine Aminotransferase (ALT/SGPT) 10U/L (0-32) Alkaline Phosphatase 134U/L (25-165) Total Protein 7.1g/dL (6.4-8.4) Albumin 3.5g/dL (3.4-5.0) Lipase 44U/L (13-60) Lab values outside NL range: no clinical significance. Urinalysis Interpretation Positive leukocyte est, Positive nitrite, Positive bacteria Re-Eval/Medical Decision Med Decision/Clinical Course Patient is a 76 year old female with history of recurrent UTI who presented to ED complaining of dysuria for 4-5 days. Patient denies any other symptoms such as abdominal pain, fever, nausea, vomiting, chest pain, shortness of breath. She states that her symptoms are very similar to those she has whenever she diagnosed with UTI. While in ED, patient is hemodynamically stable, her labs are normal, and she is in no apparent distress. She is nontoxic in appearance and there is no flank tenderness. her UA is positive for nitrites, leukocytes esterase, and bacteria. She has received a dose of Rocephin, 2g, IV while in ED. She will be discharged home on a 7 day course of ciprofloxacin. She was instructed to closely follow up with her PCP for INR checks as she is on warfarin s/p DVT. Patient agrees with the plan. She is discharged home in a stable condition. Re-Evaluation/Progress : Time of Eval: 20:05 Patient Status: Mild relief (patient received Dovray for left thigh pain) Counseled Regarding: Diagnosis, Lab results, Need for follow-up, When/why to return to ED Discharge & Departure Shift Change Sign-Out Response to Therapy: Improved Primary Impression: UTI (urinary tract infection) Urinary tract infection type: site unspecified Hematuria presence: without hematuria Qualified Code: N39.0 - Urinary tract infection, site not specified Disposition: Home Discharge Condition Condition: Stable Additional Instructions: Thank you for seeking care at Emergency Department today. You have a urinary tract infection. You received a dose of IV antibiotic in the Emergency Department. All your other labs look normal. We are sending you home with a prescription for an oral antibiotic, ciprofloxacin, for 7 days. Please take it as directed. Drink plenty of water. Please CALL YOUR PCP and make a follow up appointment. You will need to recheck INR often while on antibiotic as it may interfere with warfarin. Please come back to Emergency Department if you develop confusion, vomiting, high fever, lethargy, chest pain, IRREGULAR HEART PALPITATIONS, shortness of breath. Thank you for letting us partake in your care today. Referrals: Beto Abrams MD (PCP) EDSupervising Provider for APC: Nikolai Barroso MD Attending Statement Attending attestation: I saw this patient in conjunction with the above named resident. I was present for all bedoya portions of the history taking and physical examination. I agree with the workup, evaluation, treatment and disposition. Nikolai Barroso MD copies to: Beto Abrams MD, Oksana S DO March 15, 2017 17:48 Nikolai Barroso MD March 15, 2017 23:41
[2017-03-15] MEDS ORDERED: HYDROcodone-APAP 5-325 mg Tablet PO ONE (19:00)
[2017-03-15 19:15] LABS: APPEARANCE,URINE TURBID (CLEAR,HAZY); COLOR,URINE STRAW (YELLOW)
[2017-03-15 19:16] LABS: OCCULT BLOOD,URINE SMALL (NEGATIVE); PH,URINE 7.5 (5.0-8.0)
[2017-03-15 19:21] LABS: BASOPHILS % (AUTO) 0.7 % (0-3); EOSINOPHILS % (AUTO) 4.2 % (0-5); MONOCYTES % (AUTO) 8.9 % (4-12); Mean Corpuscular Hemoglobin 31.7 pg (27.0-35.0); Mean Corpuscular Volume 96.9 fL (81-100); NEUTROPHILS % (AUTO) 53.8 % (40-74); Platelet Count 193 bil/L (150-400)
[2017-03-15 19:37] LABS: INR 2.3 ratio
[2017-03-15] MEDS ORDERED: cefTRIAXone Inj 2,000 MG in Dextrose 5% Minibag Plus 50 ML IV ONE (19:55)
[2017-03-15] MEDS ORDERED: CIPR-198 PO ×2 (21:20→21:22)
[2017-03-15 21:41] VITALS: BP 130/76; PULSE 56; RESP 16; O2SAT 99
[2017-03-15 21:45] VITALS: BP 130/76; PULSE 56; RESP 16; O2SAT 99
[2017-03-19] MEDS ORDERED: WARF2.5T PO ×2 (08:32)
[2017-03-19] MEDS ORDERED: SULF1TAB7 PO (09:09)
== END 2017-03-15 21:54 | disposition home or self-care (01) ==
LOC: SED 16:07
DX: N39.0 Urinary tract infection, site not specified (principal); B96.20 Unspecified Escherichia coli [E. coli] as the cause of diseases classified elsewhere; B96.4 Proteus (mirabilis) (morganii) as the cause of diseases classified elsewhere; I10 Essential (primary) hypertension; E78.5 Hyperlipidemia, unspecified; K21.9 Gastro-esophageal reflux disease without esophagitis; I82.409 Acute embolism and thrombosis of unspecified deep veins of unspecified lower extremity; I69.954 Hemiplegia and hemiparesis following unspecified cerebrovascular disease affecting left non-dominant side; Z79.82 Long term (current) use of aspirin; Z79.01 Long term (current) use of anticoagulants; Z87.891 Personal history of nicotine dependence; Z99.3 Dependence on wheelchair
CPT/HCPCS: 36415; 80053; 81000; 83605; 83690; 85025; 85610; 87077; 87086; 87088; 87186; 96365; 96366; 99284; J0696

== ENCOUNTER 2017-04-07 20:41 | Emergency (ER) | payer MEDICARE, MEDICAID ==
[~2017-04-07] VITALS: Ht 152.4 cm; Wt 75.0 kg
[~2017-04-07 20:41] MED LIST changes: +SULF1TAB7 PO; +WARF2.5T PO; -WARF5TAB PO
[2017-04-07 20:50] VITALS: BP 107/68; PULSE 80; RESP 16; O2SAT 98
--- NOTE | 2017-04-07 21:00 | ED.REPORT ---
HPI-General Illness Date of Service Apr 07, 2017 ED Provider: Rodger Lopez MD A 76 year old female with a history of UTI, CVA with left-sided deficits, hypertension, diabetes, GERD, hyperlipidemia and DVT presents to the ED complaining of chest pain. The pt has been experiencing intermittent left-sided chest pain for one month. The pain is described as "throbbing pain" and does not radiate. It does not occur every day, but has been hurting her more than usual in recent daysThe pain is not positional or exertional and does not seem to be relieved by anything. The pt denies fever, chills, chest pain, shortness of breath, abdominal pain, nausea, vomiting, diarrhea, abnormal weakness, pleuritic pain, constipation, hematuria or hematochezia. Nursing Notes Stated Complaint: LEFT SHOULDER/CHEST PAIN Chief Complaint: Chest Pain Nursing Notes Reviewed: Yes Allergies: Coded Allergies: No Known Allergies (Verified Allergy, Mild, 11/11/09) Scheduled Aspirin (Aspirin) 81 Mg Tablet 81 MG PO DAILY Ciprofloxacin (Ciprofloxacin) 500 Mg Tablet 500 MG PO BID Citalopram (Citalopram) 10 Mg Tablet 10 MG PO DAILY Cranberry Fruit (Cranberry) 500 Mg Tab.chew 500 MG PO DAILY Lisinopril (Lisinopril) 20 Mg Tablet 20 MG PO DAILY Valacyclovir HCl (Valtrex) 500 Mg Tablet 500 MG PO TID Warfarin Sodium (Coumadin) 2.5 Mg Tablet 2.5 MG PO daily except Monday Warfarin Sodium (Coumadin) 2.5 Mg Tablet 1.25 MG PO Monday Scheduled PRN Acetaminophen (Tylenol Arthritis) 650 Mg Tablet.er 650 MG PO TID PRN PRN For Pain Baclofen (Baclofen) 10 Mg Tablet 5 MG PO TID PRN PRN For Spasm Sulfamethoxazole/Trimeth 800-160 mg (Bactrim DS) 1 Each Tablet 1 TABLET PO BID PRN PRN UTI General Time Seen by : 21:00 Chief Complaint Chest pain Hx Obtained From: Patient Arrived By: Walk-in Sudden in Onset?: No Onset Occurred: More than a week ago... 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 DM type 2 Depression History of UTIs History of shingles - several years ago Reports: GERD, Hyperlipidemia, Hypertension Past Surgical History none reported Smoking History Former Smoker Social History Alcohol Use: Denies alcohol use Drug Use: Denies drug use Other Social History: Good social support, Local resident Ambulatory Status Wheelchair Review of Systems Full Review of Systems Respiratory: Denies: Non-productive cough, Pleuritic pain, Shortness of breath Cardiovascular: Reports: Chest pain GI: Denies: Abdominal pain, Constipation, Diarrhea, Hematochezia, Nausea, Vomiting Female: Denies: Hematuria Musculoskeletal: Denies: Back pain Skin: Denies Rash Neurologic: Denies: Weakness Complete sys rev & neg: except as marked. Physical Exam Constitutional: Well-developed, well-nourished. Not diaphoretic. Head: Normocephalic and atraumatic. Mouth/Throat: Oropharynx is clear and moist. No oropharyngeal exudate. Eyes: EOM are normal. Pupils are equal, round, and reactive to light. Neck: Supple, no tracheal deviation. Cardiovascular: Normal rate, regular rhythm. Equal and intact distal pulses throughout. Pulmonary/Chest: Effort normal and breath sounds normal. No respiratory distress. Abdominal: Soft. No distension. There is no tenderness, rebound, or guarding. Bowel sounds present. Musculoskeletal: Range of motion grossly intact, moving all extremities. No edema or tenderness appreciated. Neurological: AOx3. Grossly nonfocal exam. Sensation intact and equal to bilateral upper and lower extremities. Weakness on left upper and lower extremities compared to right, consistent with previous stroke. Skin: Warm and dry, no rashes or pallor appreciated. Psychiatric: Appropriate mood and affect. Behavior appears normal. Vital Signs Vital Signs Date Time Temp Pulse Resp B/P Pulse Ox O2 Delivery O2 Flow Rate FiO2 04/08/17 01:29 36.7 71 18 120/45 100 Room Air 04/08/17 01:09 36.7 71 18 120/45 100 Room Air 04/07/17 20:50 36.7 80 16 107/68 98 Room Air Initial VS: Reviewed Interpretation & Diagnostics Lab Results Interpretation Result Diagram: 04/07/17221904/07/172219 Test 04/07/17 22:20 White Blood Count 7.8th/mm3 (3.8-10.1) Red Blood Count 3.72mil/mm3 (3.90-5.20) Hemoglobin 11.5g/dL (12.0-15.6) Hematocrit 36.1% (35.0-46.0) Mean Corpuscular Volume 97.0fL (81-100) Mean Corpuscular Hemoglobin 30.9pg (27.0-35.0) Mean Corpuscular Hemoglobin Concent 31.9% (32.0-37.0) Red Cell Distribution Width 12.5% (12.3-15.4) Platelet Count 195bil/L (150-400) Neutrophils (%) (Auto) 52.0% (40-74) Lymphocytes (%) (Auto) 35.3% (14-46) Monocytes (%) (Auto) 7.3% (4-12) Eosinophils (%) (Auto) 4.5% (0-5) Basophils (%) (Auto) 0.6% (0-3) Prothrombin Time 19.4sec (8.1-12.5) Prothromb Time International Ratio 1.79ratio Sodium Level 136mEq/L (134-144) Potassium Level 4.3mEq/L (3.5-5.2) Chloride Level 100mEq/L (97-108) Carbon Dioxide Level 22mmol/L (18-29) Blood Urea Nitrogen 21mg/dL (8-27) Creatinine 0.90mg/dL (0.57-1.00) Estimat Glomerular Filtration Rate 87mL/min (>59) Glucose Level 150mg/dL (60-99) Calcium Level 9.1mg/dL (8.5-10.1) Magnesium Level 1.9mg/dL (1.6-2.6) Total Bilirubin 0.2mg/dL (0.0-1.2) Aspartate Amino Transf (AST/SGOT) 16U/L (0-50) Alanine Aminotransferase (ALT/SGPT) 15U/L (0-32) Alkaline Phosphatase 142U/L (25-165) Troponin T 0.010ug/L (0.0-0.011) Total Protein 7.0g/dL (6.4-8.4) Albumin 3.4g/dL (3.4-5.0) Hold Sky Top Tube Received (Received) ECG Interpretation ECG Interpretation: normal sinus rhythm with a rate of 81 LVH Time: 21:05 Interpreted by: ED physician ECG Interpretation: normal sinus rhythm with a rate of 80 LVH Time: 21:57 Interpreted by: ED physician CT Chest Interpretation Impression: Somewhat limited by motion. No acute occlusive PE in the optimally seen pulmonary arterial tree. Atherosclerotic disease. Groundglass opacities seen with pneumonitis or expiratory phase, for example. Early signs of interstitial pulmonary edema suspected. Please correlate clinically. Other findings above. Interpreted by Virginia Hoffman MD Study type: CT pulm angiogram Interpretation / Wet Read by: Interpret - Radiologist Procedures Procedure Notes: Peripheral / EJ IV Start Peripheral / EJ IV Start: Placed in trendelenburg position prior to procedure Time: 23:44 Procedure Performed by: ED physician (Dr. Barroso) Type of Catheter: Single lumen Size of Catheter: #18 # of Attempts: 1 IV Site: External jugular left Skin Preparation Agent: Betadine Secured with: Tape Re-Eval/Medical Decision Med Decision/Clinical Course In summary, 76-year-old female with complex PMHx including a history of DVT on coumadin presenting to the ED with 1 month of intermittent chest pain. Does not seem to be exertional. Currently feeling better at this time, however given her history of DVT, age, concern for PE. Patient signed out to oncoming provider with CTA pending. If patient continues to remain chest pain-free, she may be able to follow-up on Monday with her primary care provider for further evaluation, likely stress test. Labs notable as below: CBC: Unremarkable CMP: Unremarkable INR of 1.[address] angiogram was obtained and demonstrated no pulmonary embolism. There is mention of some possible groundglass opacities consistent with pneumonitis or early interstitial pulmonary edema. The patient's presentation was not consistent with congestive heart failure at this moment. Laboratory studies as above were reassuring. Patient remained with stable vital signs, comfortable and in no apparent distress. Upon repeat history she mentioned some chronic mild cough but denies any active chest pain. She would like to go home and may follow up with her primary care physician next week. I feel that this is appropriate. She will pursue outpatient stress test first thing next week. Prior to discharge follow-up and return precautions were reviewed in detail with the patient who verbalized understanding and agreement with the plan. The patient was discharged in stable condition. Source of Hx: Old records Time of Eval: 23:44 Re-Evaluation/Progress Note: Left EJ started by Nikolai Barroso due to other IV site difficulties and need for chest CTA. Time of Eval: 01:05 Re-Evaluation/Progress Note: Pt rechecked. CP resolved. No dyspnea. The daughter reports weeks of mild cough. Informed pt of plan for treatment. Pt understands and agrees with plan for treatment. F/U instructions and RTER warnings given. All questions addressed. Counseled Regarding: Diagnosis, Lab results, Need for follow-up, When/why to return to ED Discharge & Departure Shift Change Sign-Out Patient Care Transferred: Yes Discussed Complaint(s): Yes Laboratory Evaluation: Ordered, not yet done Imaging Studies: Ordered, not yet done Primary Impression: Chest pain Chest pain type: unspecified Qualified Code: R07.9 - Chest pain, unspecified Additional Impression: Chronic cough Disposition: Home Discharge Condition All VS Reviewed: Yes Condition: Stable Additional Instructions: Thank you for allowing us to be a part of your care. Your evaluation in the emergency department was reassuring. Call to arrange a follow up appointment with your primary care physician on Monday. You may need an outpatient stress test. Return to the emergency department if you develop any new or worsening symptoms. Referrals: Beto Abrams MD (PCP) Care Transferred to: Dr. Barroso Care Transferred at: 00:00 EDSupervising Provider for APC: Nikolai Barroso MD Attestation Portions of this note were transcribed by Юлия Jacinto. I, Dr. Lopez personally performed the history, physical exam and medical decision-making; I reviewed and confirmed the accuracy of the information in the transcribed note. Signed by: Alexsandra Villarreal, 04/07/2017 and 2300. copies to: Beto Abrams MD, William B MD Apr 07, 2017 21:00 ЮЛИЯ JACINTO Apr 07, 2017 21:19 TESS DOWNS Apr 07, 2017 23:52 Nikolai Barroso MD Apr 08, 2017 01:50
[2017-04-07 22:30] LABS: BASOPHILS % (AUTO) 0.6 % (0-3); EOSINOPHILS % (AUTO) 4.5 % (0-5); MONOCYTES % (AUTO) 7.3 % (4-12); Mean Corpuscular Hemoglobin 30.9 pg (27.0-35.0); Platelet Count 195 bil/L (150-400)
[2017-04-07 23:01] LABS: INR 1.79 ratio; TROPONIN T 0.01 ug/L (0.0-0.011)
[2017-04-07 23:12] LABS: Magnesium 1.9 mg/dL (1.6-2.6)
[2017-04-08 01:09] VITALS: BP 120/45; PULSE 71; RESP 18; O2SAT 100
[2017-04-08 01:29] VITALS: BP 120/45; PULSE 71; RESP 18; O2SAT 100
--- NOTE | 2017-04-08 07:57 | DRSVH ---
PROCEDURE: CT ANGIO CHEST PULMONARY EMBOLISM ([id number]) INDICATIONS: chest pain; eval for PE TECHNIQUE: After the administration of intravenous contrast, 2 mm thick sections acquired from the pulmonary api pia to the posterior costophrenic angles. 3-dimensional maximum intensity projection (MIP) coronal a nd sagittal reformats were then acquired through the thorax. For radiation dose reduction, the follo wing was used: automated exposure control, adjustment of mA and/or kV according to patient size. COMPARISON: [facility], CR, XR CHEST 1VW (PORTABLE), 04/07/2017, 21:56. FINDINGS: Image quality: Good, some respiratory motion Pulmonary arteries: Pulmonary arteries are normal in size, and demonstrate no intraluminal filling d efects to suggest central pulmonary embolism. Lungs and pleura: Scattered areas of groundglass density. Prominent vasculature extending to the pleu ra. No pleural effusions or pneumothorax. Central and peripheral airways are patent. Mediastinum: Heart size is probably mildly enlarged, without pericardial effusion. No mediastinal o r hilar adenopathy. Thoracic aorta is normal in caliber and enhancement. Esophagus is normal in lindsay iber, without hiatal hernia. Bones and chest wall: No suspicious bony lesions. Ribs and thoracic spine appear intact throughout. Thyroid gland is within normal limits. No axillary or supraclavicular adenopathy. Abdomen: Visualized upper abdominal solid organs appear normal in the early arterial phase of enhanc ement. IMPRESSION: 1. No evidence for pulmonary embolus. 2. Scattered ground glass appearance to the lungs with prominent vasculature. The appearance would castillo ggest early pulmonary edema. Dictated by: Pio Collier M.D. on 04/08/2017 at 7:52 this report corresponds to the findings of leda brown preliminary NSR report. Approved by: Pio Collier M.D. on 04/08/2017 at 7:55
--- NOTE | 2017-04-08 09:50 | DRSVH ---
PROCEDURE: X-RAY CHEST ONE VIEW, PORTABLE ([id number]) INDICATIONS: chest pain TECHNIQUE: One view of the chest was acquired. COMPARISON: [facility], , XR CHEST 2VW, 11/14/2015, 13:15. FINDINGS: Surgical changes and devices: None. Lungs and pleura: No pleural effusions or pneumothorax. Lungs are clear of focal infiltrate. There is a increase in interstitial markings without effusion.. Mediastinum: Mediastinal contours appear normal. Heart size is normal. Bones and chest wall: No suspicious bony lesions. Overlying soft tissues appear unremarkable. IMPRESSION: Increased interstitial markings. No focal infiltrate. Dictated by: Pio Collier M.D. on 04/08/2017 at 9:48 Approved by: Pio Collier M.D. on 04/08/2017 at 9:49
== END 2017-04-08 01:30 | disposition home or self-care (01) ==
LOC: SED 20:41
DX: R07.9 Chest pain, unspecified (principal); R05 Cough; I10 Essential (primary) hypertension; Z86.73 Personal history of transient ischemic attack (TIA), and cerebral infarction without residual deficits; E11.9 Type 2 diabetes mellitus without complications; K21.9 Gastro-esophageal reflux disease without esophagitis; E78.5 Hyperlipidemia, unspecified; Z86.718 Personal history of other venous thrombosis and embolism; F32.9 Major depressive disorder, single episode, unspecified; Z87.891 Personal history of nicotine dependence; Z79.82 Long term (current) use of aspirin; Z79.01 Long term (current) use of anticoagulants; Z88.1 Allergy status to other antibiotic agents
CPT/HCPCS: 36415; 71010; 71275; 80053; 83735; 84484; 85025; 85610; 93005; 99285; Q9967